=== PATIENT | male | born 1950 | race Caucasian/White ===

== ENCOUNTER 2024-09-27 08:12 | Observation (INO) | payer MEDICARE, SELFPAY ==
[2024-09-26 20:20] VITALS: BP 122/89
[2024-09-26 20:28] VITALS: BP 164/85
[2024-09-26 20:37] VITALS: BMI 31.1
[2024-09-26 20:45] LABS: % Basophils 0.3 % (0-2); % Immature Granulocytes 0.2 % (0-0.5); % Lymphocytes 28.4 % (20.5-51.1); % Monocytes 9.7 % (1.7-9.3); % Neutrophils 59.4 % (42.2-75.2); Absolute Eosinophils 0.1 10^3/uL (0-0.7); Absolute Lymphocytes 1.8 10^3/uL (1.2-3.4); Absolute Monocytes 0.6 10^3/uL (0.1-0.6); Absolute Neutrophils 3.8 10^3/uL (1.4-6.5); Hematocrit 37.5 % (39.0-52.0); Hemoglobin 13.3 g/dL (13.0-18.0); Mean Corp Hgb Conc. 35.5 g/dL (33.0-37.0); Mean Corpuscular Hgb 30.2 pg (27.0-31.0); Nucleated Red Blood Cells % 0 % (-); Platelet Count 217 10^3/uL (130-400); Red Blood Cell Count 4.41 10^6/uL (4.70-6.10); Red Cell Dist. Width 12.8 % (11.5-14.5); White Blood Cell Count 6.4 10^3/uL (4.8-10.8)
[2024-09-26 21:00] VITALS: BP 115/60
[2024-09-26 21:08] LABS: ALT (SGPT) 21 U/L (0-50); AST (SGOT) 25 U/L (17-59); Albumin 4.3 g/dl (3.5-5.0); Alkaline Phosphatase 60 U/L (38-126); Blood Urea Nitrogen 17 mg/dl (9-20); Calcium 9.8 mg/dl (8.4-10.2); Carbon Dioxide 29 mmol/L (22-30); Chloride 108 mmol/L (98-107); Estimated Creatinine Clearance 107 ml/min; Glucose 104 mg/dl (70-99); Potassium 4.1 mmol/L (3.5-5.1); Sodium 141 mmol/L (135-145); Total Bilirubin 0.3 mg/dl (0.2-1.3); eGFR > 60.00
[2024-09-26 21:20] LABS: Troponin I < 0.012 ng/ml
[2024-09-26 22:00] VITALS: BP 138/74
[2024-09-26 23:00] VITALS: BP 131/94
[2024-09-27] VITALS (15 sets, daily range): BP systolic 97–150; BP diastolic 55–90; PULSE 47–88; BMI 30.9; BMI 30.6
--- NOTE | 2024-09-27 00:16 | ED.GENMED ---
History of Present Illness
General
Chief Complaint: Dizziness
Source: patient
Exam Limitations: none
Time Seen by Provider: 09/27/24 00:13
Nursing documentation reviewed up to this point in time: agreed with
History of Present Illness
History of Present Illness:
Note:
CHIEF COMPLAINT(S)
Dizziness with episodes of vertigo.
HISTORY OF PRESENT ILLNESS
The patient is a 74-year-old male with a history of benign paroxysmal positional vertigo (BPPV), htn, hlp, ckd stage 2, depression who presents with worsening dizziness and vertigo. This is described as the third episode of vertigo in two months,
with the current episode being the most severe. The episodes began on a and progressed, with some improvement over the following days, but worsened again on the day of presentation. The patient reports losing balance, resulting in bouncing
against bolden at home, accompanied by intermittent nausea and vomiting. He mentioned a high blood pressure reading taken by a security advisor who is an Emergency Traveling Nurse (EMT). The patient expresses concern that this episode may involve
more than just vertigo. He has been using meclizine, which provided no relief today.
An MRI performed in June was clear. There is no current chest pain or numbness in limbs, although vertigo symptoms persist. The patient also reports a headache. The patients nausea and dizziness have improved slightly after resting in the emergency
department. He reports that he states to have a appointment today for physical therapy for his BPPV however he felt too ill.
EXTERNAL RECORDS REVIEWED
A previous brain MRI in June 2023 done at [facility] indicated no significant findings.
CHRONIC MEDICAL CONDITIONS SIGNIFICANTLY AFFECTING CARE
Chronic conditions affecting care: benign paroxysmal positional vertigo (BPPV).
PHYSICAL EXAM
- Nursing notes reviewed and vital signs reviewed.
General: Patient is well appearing and in no acute distress; non-toxic
Skin: Warm and dry, no rashes or lesions
Head: Normocephalic, atraumatic
Eyes: Sclera non-icteric. EOMs intact.
Cardiac: Regular rate and rhythm, no murmurs
Peripheral Vascular: No lower extremity swelling or edema
Pulm: Normal respiratory effort, no wheezes, rales, rhonchi
Abdomen: No abdominal tenderness to palpation
Neuro: CN II-XII intact, no focal neurologic deficits. Normal finger-nose, [id number]. Initially, his gait seems steady and normal however on reassessment, he experiences feeling unsteady and nursing staff reports that he had a near syncopal
episode.
Psychiatric: Appropriate mood and affect.
PLAN
CT scan, CBC, CMP, ECG, troponin
DIFFERENTIAL DIAGNOSIS
The Differential Diagnosis includes, in no particular order and is not limited to:
- Benign paroxysmal positional vertigo (BPPV)
- Stroke
- Labyrinthitis
- Vestibular neuritis
- Menieres disease
- Hypertension-induced dizziness
- Cardiogenic dizziness
- Anxiety-related dizziness
- Dehydration
- Medication side effect
REVIEW OF PRIOR RECORDS
No prior records in [facility] to review
MDM/DISPOSITION
The patient is a 74-year-old male with a history of benign paroxysmal positional vertigo (BPPV), htn, hlp, ckd stage 2, depression who presents with worsening dizziness and vertigo. In the past he was diagnosed with BPPV and was given meclizine.
Patient reports he took meclizine did not help. Patient reports that he was 'bouncing around the bolden 'of his apartment. My assessment, patient is well-appearing no acute distress. He has a nonfocal neurologic exam. He appears to have a normal
gait on my assessment after treatment with IV fluids and meclizine. He went to get a CAT scan of the head which was unremarkable his blood work is unremarkable as well. Did discuss discharge with patient considering he is feeling better. Patient
reports that his dizziness has returned. Discussed findings with my attending Dr. Hannah. Will trial Decadron. Will trial another dose of meclizine and more IV fluids. On reassessment, patient is sleeping comfortably but states that he feels
like he is floating. Patient feels like he feels well enough to see physical therapy this week for an appointment but is concerned that if he is discharged, his symptoms will return and get worse. Upon discharge, I was alerted by nursing staff
that all symptoms returned again and he demonstrated unsteady gait and had a near syncopal episode. Will refer for admission for intractable dizziness. Case discussed with ED attending.
Phy Exam
Physical Exam
Physical Exam:
see hpi
Course
Orders/Labs/Results
Orders:
Orders
09/26/24 20:24
Electrocardiogram (*1) Urgent
Reason for Study: Vertigo / Dizzy
EKG- Treatment ONCE
09/26/24 20:35
Complete Blood Count/With Diff Urgent
Comprehensive Metabolic Panel Urgent
Troponin I Urgent
09/27/24 00:16
Orthostatic VS- Treatment ONCE
09/27/24 00:24
Urinalysis Reflex To Culture Urgent
Date Specimen was Collected: 09/27/24
Time Specimen was Collected: 00:20
Urine Microscopic Reflex Cult Urgent
09/27/24 00:26
0.9% Sodium Chloride 500 ml [Nss] 500 ml IV BOLUS
Meclizine [Antivert] 25 mg PO NOW STA
Ondansetron Injectable [Zofran] 4 mg IV NOW STA
09/27/24 00:27
CT Head W/o Iv Contrast Urgent
Comment:
Reason For Exam: dizziness
09/27/24 03:07
Dexamethasone Sod Phosphate [Decadron] 10 mg IV NOW STA
09/27/24 03:08
0.9% Sodium Chloride 500 ml [Nss] 500 ml IV BOLUS
09/27/24 04:25
Meclizine [Antivert] 25 mg PO NOW STA
Abnormal Lab Results
09/26/24 09/27/24
20:35 00:24
RBC 4.41 L 10^6/uL
(4.70-6.10)
Hct 37.5 L %
(39.0-52.0)
Monocytes % 9.7 H %
(1.7-9.3)
Chloride 108 H mmol/L
(98-107)
Glucose 104 H mg/dl
(70-99)
Urine Albumin (Reflex) 1+ A
(Neg - Trace)
09/26/24 20:35
09/26/24 20:35
Vital Signs
Initial and Last Documented VS:
Initial Vital Signs
Temp Pulse Resp BP Pulse Ox
98.1 F 66 16 122/89 98
09/26/24 20:20 09/26/24 20:20 09/26/24 20:20 09/26/24 20:20 09/26/24 20:20
Last Documented Vital Signs
Temp Pulse Resp BP Pulse Ox
98.1 F 50 16 105/65 89
09/26/24 20:20 09/27/24 03:45 09/27/24 03:45 09/27/24 02:58 09/27/24 01:45
*Pulse Oximetry
SaO2: 97
Oxygen Mode of Delivery: Room air
Patient hypoxic: no
*Critical Care Note
Total Time (30-74mins, 75-104mins- exclusive of procedures): Not Applicable
ED Attending Note
-
Portions of this chart may have been created with voice recognition software.� Occasional wrong word or��sound alike� substitutions may have occurred due to the inherent limitations of voice recognition software.
Discharge Plan
Departure
Patient Disposition: Admit
Date of Disposition: 09/27/24
Time of Disposition: 07:16
Admit to: Med/Surg
Presentation/result/management discussed w/ accepting MD/DO: Hospitalist
Patient with high blood pressure during this ER visit?: No
Condition: Good
Discharge Problem:
Dizziness
Instructions: Vertigo (a Type of Dizziness) (DC)
Referrals:
Dewayne Sepnce MD [Family Provider]
Judy Mireles MD [Active, Otology]
Activity Restrictions/Additional Instructions:
I recommend evaluation by ENT doctor.
Please follow-up with your physical therapist this week with your scheduled appointment.
Please see your primary care provider in 1 week to ensure the resolution of your symptoms and for reevaluation and assessment.
PLEASE RETURN TO EMERGENCY DEPARTMENT SHOULD YOU DEVELOP CHEST PAIN, SHORTNESS OF BREATH, NAUSEA OR VOMITING, INABILITY AMBULATE, TROUBLE SWALLOWING, DIFFICULTY SPEAKING, DOUBLE VISION, BLURRY VISION, LOSS OF VISION, NECK PAIN, PERSISTENT HEADACHES,
OR ANY OTHER SIGNS OR SYMPTOMS WORRISOME TO YOU.
Interventions
Interventions:
*Risk Screen - Suicide Last Done: 09/26/24 20:37
*General Assessment Last Done: 09/26/24 20:37
*Neglect/Abuse Screening Last Done: 09/26/24 20:37
*ED- Fall Risk Assessment Last Done: 09/26/24 20:37
*ED COVID-19 Vaccine History Last Done: 09/26/24 20:37
ED- Neurological Assessment Last Done: 09/26/24 20:37
ED- Cardiac Assessment Last Done: 09/26/24 20:37
ED Swallowing Screen Last Done: 09/26/24 20:40
Discharge Date and Time
Print Language: GUAMANIAN
[2024-09-27 00:34] LABS: Urine Albumin 1+ (Neg - Trace); Urine Bilirubin Negative (Negative); Urine Character Clear (Clear); Urine Color Yellow; Urine Glucose Negative (Negative); Urine Ketone Negative (Negative); Urine Leukocyte Negative (Negative); Urine Nitrite Negative (Negative); Urine Occult Blood Negative (Negative); Urine Specific Gravity 1.015 (<1.030); Urine Urobilinogen Negative (Neg - 1+); Urine pH 6.5 (5.0-9.0)
[2024-09-27] MEDS: ANTIVERT 25 MG PO ×2 (00:48→04:41)
[2024-09-27] MEDS: ZOFRAN 4 MG IV (00:49)
[2024-09-27] MEDS: NSS 500 IV ×2 (00:53→03:37)
[2024-09-27 01:08] LABS: Urine Squamous Cell 0-2 /LPF (Few)
[2024-09-27 01:09] LABS: Urine Red Blood Cell None Seen /HPF (0-2); Urine White Cell 0-2 /HPF (0-5)
[2024-09-27] MEDS: DECADRON 10 MG IV (03:37)
--- NOTE | 2024-09-27 07:40 | HPS.HSE ---
Family Physician
-
Family Physician: Dewayne Spence
Chief Complaint
-
dizziness
History of Present Illness
HPI: 74-year-old male with PMH benign paroxysmal positional vertigo, HTN, HLD, depression; p/w worsening dizziness and vertigo.
This episodes started 3-4 days [employer]INTER and progressed. The patient reports losing balance, resulting in bouncing against bolden at home, accompanied by intermittent nausea and vomiting.
He is concern that this may involve more than just vertigo. He has been using meclizine, which had minimal relief.
He had a MRI performed in June which was clear. He denies to other symptoms, no fever/chills, CP, SOB etc.
Medical History
Past Medical History
Past Medical History: Reports Other
Additional Past Medical History:
benign paroxysmal positional vertigo,
HTN,
HLD,
depression
Past Surgical History: Reports Other
Additional Past Surgical History:
L knee replacement
L shoulder replacement
4 back operations
Social History
Tobacco: Non-smoker
Alcohol: Occasional
Living: Alone
Family History
Family History: Not pertinent
Allergies / Home Medications
Allergies reflects when Allergies were last updated in [facility].
Home Medications with original date entered in [facility]
Allergy/Medication List:
Allergies
Allergy/AdvReac Type Severity Reaction Status Date / Time
No Known Allergies Allergy Verified 09/26/24 20:31
Home Medications
aspirin 81 mg tablet,delayed release 81 mg PO DAILY 09/27/24
atorvastatin 20 mg tablet (Lipitor) 20 mg PO DAILY 09/27/24
bupropion HCl 300 mg 24 hr tablet, extended release (Wellbutrin XL) 300 mg PO DAILY 09/27/24
diltiazem HCl 240 mg capsule,extended release 24 hr (Cartia XT) 240 mg PO DAILY 09/27/24
dutasteride 0.5 mg capsule 0.5 mg PO DAILY 09/27/24
escitalopram oxalate 10 mg tablet (Lexapro) 10 mg PO DAILY 09/27/24
omeprazole 20 mg capsule,delayed release 20 mg PO DAILY 09/27/24
tamsulosin 0.4 mg capsule (Flomax) 0.4 mg PO QPM 09/27/24
Review of Systems
-
Neurological: Reports See HPI and Dizzy
Physical Exam
Vital Signs
Vital Signs
Temp Pulse Resp BP Pulse Ox
36.7 C 56 15 123/68 92
09/26/24 20:20 09/27/24 07:15 09/27/24 07:15 09/27/24 07:00 09/27/24 06:45
Physical Exam
General: Well Developed, Well Nourished, No Apparent Distress, Comfortable and Conversant
HEENT: NormoCephalic, Moist mucous membranes and Atraumatic
Respiratory: Clear and Non Labored Respirations; No Accessory Resp Muscle Use
Cardiac: S1/S2 and Regular Rhythm; No Murmur or Rub
GI: Soft, Non Tender, Non Distended and Normal Bowel Sounds; No Organomegaly
Rectal: Deferred by Provider
Musculoskeletal: No Clubbing, No Cyanosis and No Edema
Skin: No Rash
Neuro: Awake and Alert
Psych: Calm and Intact Judgment/Insight
Laboratory Results
-
09/26/24 20:35
09/26/24 20:35
Laboratory Results
Total Bilirubin 0.3 mg/dl (0.2-1.3) 09/26/24 20:35
AST 25 U/L (17-59) 09/26/24 20:35
ALT 21 U/L (0-50) 09/26/24 20:35
Alkaline Phosphatase 60 U/L (38-126) 09/26/24 20:35
Troponin I < 0.012 ng/ml 09/26/24 20:35
Data Reviewed
-
Lab Data: Labs Reviewed by me
Impression/Plan
-
HPI: 74-year-old male with PMH benign paroxysmal positional vertigo, HTN, HLD, depression; p/w worsening dizziness and vertigo.
This episodes started 3-4 days [employer] and progressed. The patient reports losing balance, resulting in bouncing against bolden at home, accompanied by intermittent nausea and vomiting.
He is concern that this may involve more than just vertigo. He has been using meclizine, which had minimal relief.
He had a MRI performed in June which was clear. He denies to other symptoms, no fever/chills, CP, SOB etc.
A/P:
# Vertigo due to recurrent BPPV versus others
Follow CT head report
Check MRI brain
Zofran PRN, meclizine PRN
PT eval for vestibular therapy
consider neuro CS
Other medical conditions:
# HTN, cont [employer]INTER cardizem
# HLD,
# depression, mood stable
DVT ppx: Lovenox SQ
FC
[2024-09-27] MEDS: LIPITOR 20 MG PO (11:26)
[2024-09-27] MEDS: LEXAPRO 10 MG PO (11:26)
[2024-09-27] MEDS: PROSCAR 5 MG PO (11:26)
[2024-09-27] MEDS: WELLBUTRIN XL (24 hour extended release) 300 MG PO (11:27)
[2024-09-27] MEDS: CARDIZEM CD 240 MG PO (11:27)
[2024-09-27] MEDS: ASPIR LOW (ENTERIC COATED) 81 MG PO (11:28)
[2024-09-27] MEDS: PROTONIX 40 MG PO (11:28)
--- NOTE | 2024-09-27 16:31 | PTCARENOTE ---
Received pt from ED into room 406-1. Pt ambulatory to bed with standby assistance. Pt slightly unsteady. Bed alarm in place. Pt can be impulsive at times. Verbalizes understanding for calling for help. PT consult. Pt reports no pain, VSS.
[2024-09-27] MEDS: LOVENOX 40 MG SC (17:15)
[2024-09-27] MEDS: FLOMAX 0.4 MG PO (17:15)
[2024-09-27] MEDS: TYLENOL 650 MG PO (21:18)
[2024-09-28 07:00] VITALS: BP 143/77
[2024-09-28 07:27] LABS: Hemoglobin 13.5 g/dL (13.0-18.0); Mean Corp Hgb Conc. 35.5 g/dL (33.0-37.0); Mean Corpuscular Hgb 30.7 pg (27.0-31.0); Mean Corpuscular Volume 86.4 fL (80.0-94.0); Mean Platelet Volume 9.3 fL (7.4-10.4); Platelet Count 259 10^3/uL (130-400); Red Cell Dist. Width 12.8 % (11.5-14.5); White Blood Cell Count 13.8 10^3/uL (4.8-10.8)
[2024-09-28 08:07] LABS: Blood Urea Nitrogen 18 mg/dl (9-20); Calcium 9.7 mg/dl (8.4-10.2); Carbon Dioxide 24 mmol/L (22-30); Chloride 106 mmol/L (98-107); Estimated Creatinine Clearance 106 ml/min; Glucose 105 mg/dl (70-99); Magnesium 1.9 mg/dl (1.6-2.3); Potassium 4.2 mmol/L (3.5-5.1); Sodium 142 mmol/L (135-145); eGFR > 60.00
[2024-09-28] MEDS: ASPIR LOW (ENTERIC COATED) 81 MG PO (08:22)
[2024-09-28] MEDS: CARDIZEM CD 240 MG PO (08:22)
[2024-09-28] MEDS: LIPITOR 20 MG PO (08:22)
[2024-09-28] MEDS: PROSCAR 5 MG PO (08:23)
[2024-09-28] MEDS: LEXAPRO 10 MG PO (08:23)
[2024-09-28] MEDS: PROTONIX 40 MG PO (08:23)
[2024-09-28] MEDS: WELLBUTRIN XL (24 hour extended release) 300 MG PO (08:23)
[2024-09-28 08:26] LABS: Hepatitis C Antibody Negative (Negative)
--- NOTE | 2024-09-28 10:47 | W.PN.HOSP.TC ---
Addendum entered and electronically signed by Yasmin Gannon MD 09/28/24 13:43:
total DC time 35 min
Original Note:
Today's Communication/Plan
-
see A/P
Assessment / Plan
Assessment / Plan
HPI: 74-year-old male with PMH benign paroxysmal positional vertigo, HTN, HLD, depression; p/w worsening dizziness and vertigo.
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 The patient reports losing balance, resulting in bouncing against bolden at home, accompanied by intermittent nausea and vomiting.
He is concern that this may involve more than just vertigo. He has been using meclizine, which had minimal relief.
He had a MRI performed in June which was clear. He denies to other symptoms, no fever/chills, CP, SOB etc.
A/P:
# Vertigo due to recurrent BPPV versus others
CT head and MRI brain both unrevealing
Zofran PRN, meclizine PRN
PT eval for vestibular therapy
Symptom has improved , no need for neuro eval
# Leucocytosis likely reactive
WBC 13.8 today, check repeat CBC in 1 week with result to PCP
Other medical conditions:
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
# HLD,
# depression, mood stable
DVT ppx: Lovenox SQ
FC
Anticipated Discharge: Today
Subjective/Interval History
-
Date of Service: September 28, 2024
Objective Data
-
Labs:
Laboratory Results
09/28/24
06:26
WBC 13.8 H
Hgb 13.5
Hct 38.0 L
Plt Count 259
Sodium 142
Potassium 4.2
Chloride 106
Carbon Dioxide 24
BUN 18
Creatinine 0.8
Glucose 105 H
Calcium 9.7
Vital Signs:
Vital Signs
Temp Pulse Resp BP Pulse Ox
36.7 C 90 18 143/77 100
09/28/24 07:00 09/28/24 08:22 09/28/24 07:00 09/28/24 08:22 09/28/24 09:26
I&O
09/27/24 09/28/24 09/29/24
06:59 06:59 06:59
Intake Total 1100 / 1100
Output Total 400 / 400
Balance -400 / -400 1100 / 1100
Review of Systems
-
History Source: Patient
All other systems: Reviewed and negative
Physical Exam
-
General: Well Developed, Well Nourished, No Apparent Distress, Comfortable and Conversant; Negative Respiratory Distress
HEENT: Normocephalic, Atraumatic, Nose Appears Normal and Ears Appear Normal; Negative Oxygen
Respiratory: Clear to Auscultation and Non Labored Respirations; Negative Accessory Resp Muscle Use
Cardiac: Regular Rhythm and S1/S2
GI: Soft, Nontender, Nondistended and Normal Bowel Sounds
Skin: Warm and Dry
Neuro: Awake, Alert, Oriented and AO x 3
Psych: Calm and Intact Judgement/Insight
Data Reviewed
-
CT Scan: Report Reviewed by me and Discussed with Patient
MRI: Report Reviewed by me and Discussed with Patient
Labs: Labs Reviewed by me
[2024-09-28 11:06] VITALS: BP 144/64
[2024-09-28 11:47] LABS: C-Reactive Protein < 5.00 mg/L (0.0-10.00)
--- NOTE | 2024-09-28 12:59 | CM ---
Met with patient to obtain information for assessment. Patient stated that he lives alone at [facility]. He is independent with all of his ADLs, personal care, dressing and bathing. 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 Patient
stated that he has no DME. He has never had VN or been to a SNF.
Patient has a prescription plan and uses, [facility] at [facility].
Patient's PCP is, Dewayne Spence.
Per PT rec patient should continue with outpatient rehab. Patient's daughter will pick patient up.
Update called to Roberta at [facility].
Plan: Case management will continue to follow and assist with discharge planning. Home.
--- NOTE | 2024-09-28 13:40 | W.DCSUMMARY ---
Discharge Summary
Discharge Data
Date of Admission: 09/27/24
Date of Discharge: 09/28/24
-
Pending Results: No
Hospital Course
Principal Diagnosis:
Vertigo due to recurrent BPPV
Suspect reactive leukocytosis
Chronic Diagnoses:�
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
# HLD,
# depression, mood stable
Consultations:�
None
Procedures:�
None
Clinical course:�
This is a 74-year-old male with past medical history as stated above who presented with worsening dizziness/vertigo.
Problem 1:
Vertigo due to recurrent BPPV.
His CT head and MRI brain were both unrevealing.
His symptom improved hence was cleared for discharge home.
He can continue with meclizine as needed.
He can follow-up with PT outpatient for continued vestibular therapy.
As for the rest of his medical problems, they were stable during his hospital stay.
Discharge Plan
-
Patient Disposition: Home (Routine Discharge)
Discharge Diagnosis/Procedures: Vertigo due to recurrent BPPV;
[place] reactive leukocytosis
Condition: Good
Diet: As tolerated, Low Fat, Low Cholesterol and Low Sodium
Activity: As tolerated
Driving Restrictions: As prior to admission
Blood Work: CBC in 1 week, result to your PCP
Other Services: PT
Activity Restrictions/Additional Instructions:
Continue with [facility] outpatient for your BPPV
Referrals:
Dewayne Spence MD [Family Provider] - in less than 1 week
Prescriptions:
Continued
diltiazem HCl [Cartia XT] 240 mg capsule,extended release 24hr
240 mg PO DAILY
omeprazole 20 mg capsule,delayed release(DR/EC)
20 mg PO DAILY
atorvastatin [Lipitor] 20 mg Tablet
20 mg PO DAILY
aspirin 81 mg Tablet,Delayed Release (Dr/Ec)
81 mg PO DAILY
tamsulosin [Flomax] 0.4 mg Capsule
0.4 mg PO QPM
escitalopram oxalate [Lexapro] 10 mg Tablet
10 mg PO DAILY
Patient Comments:
[facility] phyisican group only has once a day
dutasteride 0.5 mg Capsule
0.5 mg PO DAILY
bupropion HCl [Wellbutrin XL] 300 mg Tablet Extended Release 24 Hr
300 mg PO DAILY
Discharge Orders:
Discharge Patient (As Directed); Ordered 09/28/24
Ordered By: Yasmin Gannon
Discharge Date and Time
Discharge Date/Time: 09/28/24 13:17
Print Language: WELSH
== END 2024-09-28 13:17 ==
LOC: 4 EAST ACU 08:12
PROVIDERS: Emergency Medicine; Physician Assistant; ADMITTING PHYSICIAN Internal Medicine; EMERGENCY PHYSICIAN Emergency Medicine; FAMILY PHYSICIAN Internal Medicine
DX: H81.10 Benign paroxysmal vertigo, unspecified ear (principal); R42 Dizziness and giddiness; R11.2 Nausea with vomiting, unspecified; I12.9 Hypertensive chronic kidney disease with stage 1 through stage 4 chronic kidney disease, or unspecified chronic kidney disease; Z79.899 Other long term (current) drug therapy; E78.5 Hyperlipidemia, unspecified; F32.A Depression, unspecified; D72.829 Elevated white blood cell count, unspecified
CPT/HCPCS: 70450; 70551; 80048; 80053; 81003; 81015; 83735; 84484; 85025; 85027; 86140; 86803; 87070; 93005; 96374; 96375; 97112; 97163; 99285; G0378

== ENCOUNTER 2024-10-01 14:53 | Emergency (ER) | payer MEDICARE, OTHER, SELFPAY ==
[2024-10-01 14:57] VITALS: BP 141/77
--- NOTE | 2024-10-01 17:04 | ED.GENMED ---
History of Present Illness
General
Chief Complaint: Dizziness
Source: patient
Exam Limitations: none
Time Seen by Provider: 10/01/24 16:43
Nursing documentation reviewed up to this point in time: agreed with
History of Present Illness
History of Present Illness:
74-year-old female with past medical history of BPV, hypertension depression presents back to the ER for continued vertigo. Patient was just admitted September 27 and discharged September 28 ,3 days ago. He did have a CAT scan and MRI which were negative.
He saw his pcp yesterday and is also taking Flonase and Zofran or meclizine. He reports he has had intermittent vertigo over the past month and a half but now is getting worse. He lives in [facility] and started with dizziness
again today which is what prompted him to call EMS.
He is scheduled for physical therapy on Thursday. Reports he has had intermittent chest pains over the past several days without associated shortness of breath. No history of CAD.
He reports when he gets the chest pain he takes his Klonopin which she normally takes for anxiety as pain goes away.
Review of Systems
Review of Systems
Allergies reviewed?: Yes
All Other Systems: ROS reviewed and negative except as documented in HPI and ROS
Phy Exam
General Physical Exam
General Presentation: no apparent distress
General age: appears stated age
General Skin: warm and dry
General Habitus: normal
General Mental: alert
General Hydration: appears well hydrated
ENT Exam
ENT Exam: EOMI
Eye Exam
Eye Exam: PERRL, EOMI and other (No nystagmus b/l )
Pupil Exam: Bilateral: irregular and round
Conjunctival Changes: bilateral: none
Cardiovascular Exam
Cardiovascular Exam: regular rate/rhythm and no murmur
Neurological Exam
Neurological Exam: alert and oriented x3
Musculoskeletal Exam
Musculoskeletal Exam: full ROM
Course
Orders/Labs/Results
Orders:
Orders
10/01/24 14:55
EKG [Electrocardiogram (*1)] Stat
Reason for Study: Vertigo / Dizzy
EKG- Treatment ONCE
10/01/24 17:40
IV Insert/Care/Rem.- Treatment PRN
diazePAM [Valium Injection] 2 mg IV NOW STA
10/01/24 17:41
Cardiac Monitoring- Treatment ONCE
CR Chest - 2 Views Urgent
Comment:
Reason For Exam: cp
10/01/24 17:44
Complete Blood Count/With Diff Urgent
Comprehensive Metabolic Panel Urgent
Troponin I Urgent
Abnormal Lab Results
10/01/24
17:44
Chloride 109 H mmol/L
(98-107)
10/01/24 17:44
10/01/24 17:44
Vital Signs
Initial and Last Documented VS:
Initial Vital Signs
Temp Pulse Resp BP Pulse Ox
98.3 F 79 16 141/77 98
10/01/24 14:57 10/01/24 14:57 10/01/24 14:57 10/01/24 14:57 10/01/24 14:57
Last Documented Vital Signs
Temp Pulse Resp BP Pulse Ox
98.3 F 79 16 141/77 98
10/01/24 14:57 10/01/24 14:57 10/01/24 14:57 10/01/24 14:57 10/01/24 17:05
MDM/Problems Addressed
MDM/Problems Addressed:
Pt with chronic vertigo presents to the ER for evaluation of vertigo. Patient no acute distress was given a dose of IV Valium feeling better very well-appearing nontoxic. He did not not initially mention but later on reassessment mention that he
has had intermittent chest discomfort off and on for the past several weeks. This is not new however blood work was done including negative her troponin. No acute findings on EKG normal chest x-ray Pt has physical scheduled for this Thursday.
Patient is stable for discharge home ambulatory with a steady gait prior to discharge.
*Pulse Oximetry
SaO2: 98
Oxygen Mode of Delivery: Room air
Patient hypoxic: no (98 %RA)
*Critical Care Note
Total Time (30-74mins, 75-104mins- exclusive of procedures): Not Applicable
ED Attending Note
-
Portions of this chart may have been created with voice recognition software.� Occasional wrong word or��sound alike� substitutions may have occurred due to the inherent limitations of voice recognition software.
Discharge Plan
Departure
Patient Disposition: Home (Routine Discharge)
Date of Disposition: 10/01/24
Time of Disposition: 19:27
Patient with high blood pressure during this ER visit?: Yes
Condition: Fair
Covid-19: Not Applicable
Discharge Problem:
Vertigo, Chest pain
Instructions: Vertigo (a Type of Dizziness) (DC), Chest Pain PCP Follow Up, BLOOD PRESSURE
Prescriptions:
No Action
diltiazem HCl [Cartia XT] 240 mg capsule,extended release 24hr
240 mg PO DAILY
omeprazole 20 mg capsule,delayed release(DR/EC)
20 mg PO DAILY
atorvastatin [Lipitor] 20 mg Tablet
20 mg PO DAILY
aspirin 81 mg Tablet,Delayed Release (Dr/Ec)
81 mg PO DAILY
tamsulosin [Flomax] 0.4 mg Capsule
0.4 mg PO QPM
escitalopram oxalate [Lexapro] 10 mg Tablet
10 mg PO DAILY
Patient Comments:
[facility] only has once a day
dutasteride 0.5 mg Capsule
0.5 mg PO DAILY
bupropion HCl [Wellbutrin XL] 300 mg Tablet Extended Release 24 Hr
300 mg PO DAILY
Referrals:
UNKNOWN - PT NOT,INTERVIEWE [Unknown Provider]
Activity Restrictions/Additional Instructions:
Continue to take your meclizine for dizziness and Zofran for nausea as needed. Follow-up with physical therapy as scheduled on Thursday. Continue to follow-up with your family doctor for reevaluation of your symptoms and return if any worsening of
symptoms.
Interventions
Interventions:
*Risk Screen - Suicide Last Done: 10/01/24 14:57
*Neglect/Abuse Screening Last Done: 10/01/24 14:57
Discharge Date and Time
Print Language: [email or web address]
[2024-10-01 17:54] LABS: % Basophils 0.4 % (0-2); % Eosinophils 2.1 % (0-6); % Immature Granulocytes 0.3 % (0-0.5); % Lymphocytes 26.7 % (20.5-51.1); % Monocytes 8.4 % (1.7-9.3); % Neutrophils 62.1 % (42.2-75.2); Absolute Eosinophils 0.2 10^3/uL (0-0.7); Absolute Lymphocytes 1.9 10^3/uL (1.2-3.4); Absolute Monocytes 0.6 10^3/uL (0.1-0.6); Absolute Neutrophils 4.5 10^3/uL (1.4-6.5); Hematocrit 40.4 % (39.0-52.0); Hemoglobin 14.4 g/dL (13.0-18.0); Mean Corp Hgb Conc. 35.6 g/dL (33.0-37.0); Mean Corpuscular Hgb 30.6 pg (27.0-31.0); Mean Platelet Volume 9.2 fL (7.4-10.4); Nucleated Red Blood Cells % 0 % (-); Platelet Count 218 10^3/uL (130-400); White Blood Cell Count 7.3 10^3/uL (4.8-10.8)
[2024-10-01] MEDS: VALIUM INJECTION 2 MG IV (17:57)
[2024-10-01 18:00] VITALS: BP 138/89
[2024-10-01 18:10] LABS: ALT (SGPT) 24 U/L (0-50); AST (SGOT) 22 U/L (17-59); Albumin 4.4 g/dl (3.5-5.0); Alkaline Phosphatase 62 U/L (38-126); Blood Urea Nitrogen 20 mg/dl (9-20); Calcium 9.5 mg/dl (8.4-10.2); Carbon Dioxide 24 mmol/L (22-30); Chloride 109 mmol/L (98-107); Glucose 91 mg/dl (70-99); Potassium 4.4 mmol/L (3.5-5.1); Sodium 139 mmol/L (135-145); Total Bilirubin 0.4 mg/dl (0.2-1.3); eGFR > 60.00
[2024-10-01 18:20] LABS: Troponin I < 0.012 ng/ml
== END 2024-10-01 20:20 | disposition home or self-care (01) ==
LOC: EMR 14:53
PROVIDERS: Nurse Practitioner; EMERGENCY PHYSICIAN Emergency Medicine; FAMILY PHYSICIAN Internal Medicine
DX: R42 Dizziness and giddiness (principal); R07.89 Other chest pain; F32.A Depression, unspecified; F41.9 Anxiety disorder, unspecified; K57.92 Diverticulitis of intestine, part unspecified, without perforation or abscess without bleeding; I12.9 Hypertensive chronic kidney disease with stage 1 through stage 4 chronic kidney disease, or unspecified chronic kidney disease; N18.2 Chronic kidney disease, stage 2 (mild); M19.90 Unspecified osteoarthritis, unspecified site; Z79.82 Long term (current) use of aspirin; Z96.652 Presence of left artificial knee joint; Z96.612 Presence of left artificial shoulder joint
CPT/HCPCS: 99284; 96374; 71046; 80053; 84484; 85025; 93005

== ENCOUNTER 2024-10-19 20:33 | Inpatient (IN) | payer MEDICARE, OTHER, SELFPAY ==
[2024-10-19 17:19] VITALS: BP 139/98
[2024-10-19 17:30] VITALS: BMI 31.6
[2024-10-19 17:33] LABS: Hematocrit 42.1 % (39.0-52.0); Hemoglobin 14.9 g/dL (13.0-18.0); Mean Corp Hgb Conc. 35.4 g/dL (33.0-37.0); Mean Corpuscular Volume 84.5 fL (80.0-94.0); Nucleated Red Blood Cells % 0 % (-); Platelet Count 252 10^3/uL (130-400); Red Cell Dist. Width 13.0 % (11.5-14.5)
[2024-10-19] MEDS: DILAUDID 1 MG IV (17:36)
[2024-10-19] MEDS: NSS 1000 IV (17:42)
[2024-10-19] MEDS: BENADRYL 25 MG IV (17:43)
[2024-10-19 17:45] VITALS: BP 142/84
[2024-10-19 17:51] LABS: ALT (SGPT) 26 U/L (0-50); AST (SGOT) 30 U/L (17-59); Albumin 5.1 g/dl (3.5-5.0); Alkaline Phosphatase 85 U/L (38-126); Blood Urea Nitrogen 12 mg/dl (9-20); Calcium 10.2 mg/dl (8.4-10.2); Carbon Dioxide 25 mmol/L (22-30); Chloride 104 mmol/L (98-107); Estimated Creatinine Clearance 123 ml/min; Glucose 136 mg/dl (70-99); Potassium 4.3 mmol/L (3.5-5.1); Sodium 137 mmol/L (135-145); Total Protein 8.1 g/dl (6.3-8.2); eGFR > 60.00
[2024-10-19] MEDS: REGLAN 10 MG IV (17:51)
[2024-10-19 17:52] LABS: Lipase 60 U/L (23-300)
[2024-10-19 18:15] VITALS: BP 147/78
--- NOTE | 2024-10-19 18:56 | ED.GENMED ---
History of Present Illness
General
Chief Complaint: Abdominal Symptoms
Source: patient and family (Daughter states that the patient had a small bowel obstruction at [place] about 1 year ago and the obstruction resolved on its own)
Time Seen by Provider: 10/19/24 17:30
History of Present Illness
History of Present Illness:
Note:
CHIEF COMPLAINT(S)
Severe abdominal pain with nausea.
HISTORY OF PRESENT ILLNESS
The patient is a 74-year-old male presenting with severe abdominal pain that began this morning. The pain is described as burning and is localized to his abdomen, radiating to his back. The patient reports a history of lower intestinal blockage and
diverticulitis on two occasions. He initially attempted self-management by drinking water but found no relief. He mentions that he was nauseous yesterday but did not experience the same level of pain as today. Upon examination, significant
tenderness was noted upon palpation of the abdomen with signs of rebound tenderness. The patient was brought to the hospital by ambulance and received pain medication prior to arrival.
PHYSICAL EXAM
General: Appears to be in severe pain distress.
Skin: Warm, dry.
Head: Normocephalic, atraumatic.
Neck: Supple, trachea midline.
Eye, Ears, Nose, Mouth, and Throat: Oral mucosa moist.
Cardiovascular: Heart regular without murmur, extremities well-perfused.
Respiratory: Lungs clear to auscultation, respirations are non-labored.
Gastrointestinal: Abdomen is distended, diffusely tender with rebound tenderness and no bowel sounds. No pulsatile masses identified.
Back: Normal range of motion, Normal alignment.
Musculoskeletal: Normal ROM, normal strength.
Neurological: Alert and oriented to person, place, time, and situation, No focal neurological deficit observed.
Psychiatric: Cooperative, appropriate mood & affect.
PLAN
1. Administer pain management with intravenous medication.
2. Conduct a CT scan of the abdomen to assess for potential blockage and further evaluate the abdominal pain.
3. Evaluate the need for contrast depending on initial imaging findings.
4. Administer anti-nausea medication (Ondansetron).
DIFFERENTIAL DIAGNOSIS
The Differential Diagnosis includes, in no particular order and is not limited to:
1. Intestinal Obstruction
2. Diverticulitis
3. Pancreatitis
4. Acute Cholecystitis
5. Peptic Ulcer Disease
6. Mesenteric Ischemia
7. Abdominal Aortic Aneurysm
8. Renal Colic
9. Gastroenteritis
10. Perforated Viscus
Disposition:
SUMMARY OF ENCOUNTER
The patient is a 74-year-old male who presented to the emergency department with severe intractable abdominal pain and vomiting. Initially, he denied prior surgeries but later recalled a past hernia repair. Further evaluation indicated a likely
high-grade bowel obstruction, a condition recognized due to the presence of intractable pain and vomiting. Upon re-evaluation, the patient reported improvement after administration of pain medication and antiemetics. His medical history includes
chronic hypertension, hyperlipidemia, and depression. The emergency department workup noted leukocytosis with a white blood count of 12.9 and a left shift with neutrophilia at 88%. Chemistry panel results were normal. An EKG showed a normal sinus
rhythm with a first-degree AV block but no ischemic changes. An NG tube placement resulted in significant symptom improvement.
DISPOSITION
Admit
ASSESSMENT
Likely high-grade bowel obstruction with improvement post-NG tube placement and medical management.
EMERGENCY TREATMENTS ADMINISTERED
Pain medication and antiemetics were administered. An NG tube was placed, leading to symptom improvement.
MANAGEMENT OF THE PATIENTS CARE WAS DISCUSSED WITH
The case was discussed with the general surgery team, who reviewed the CT scan and agreed with the management plan. It was also discussed with the hospitalist for admission.
PLAN
Admit the patient for IV fluid management. Continue IV fluids with D5 normal saline at a specified rate.
INDEPENDENT REVIEW OF LABS AND INTERPRETATION OF TESTS
My independent review of the CBC indicates leukocytosis with a white blood count of 12.9 and a left shift with neutrophilia of 88%.
My independent interpretation of EKG shows normal sinus rhythm with a first-degree AV block and no ischemic changes.
MEDICATION RECONCILIATION
Pain medication and antiemetics were administered in the emergency department. The specifics of these medications were not provided.
MEDICAL DECISION MAKING
-Complexity of Data Reviewed: Chronic conditions affecting care: chronic hypertension, hyperlipidemia, depression. Differential Diagnosis includes: Intestinal Obstruction, Diverticulitis, Pancreatitis, Acute Cholecystitis, Peptic Ulcer Disease,
Mesenteric Ischemia, Abdominal Aortic Aneurysm, Renal Colic, Gastroenteritis, and Perforated Viscus.
-Data:
Category 1
Old records were reviewed including a discharge summary from September 2024, where the patient was previously admitted due to vertigo.
Category 2
My independent interpretation of EKG shows normal sinus rhythm with a first-degree AV block and no ischemic changes.
Category 3
Discussion of management with general surgery regarding the review of the CT scan and agreement on management. Discussion with hospitalist for admission and further care.
-Risk:
Consideration of Admission/Observation: Escalation of care including admission was considered given the complexity and risk of the patients presenting complaint, exam findings, and underlying comorbidities.
DIAGNOSIS
Likely High-Grade Bowel Obstruction - ICD-10 Code: K56.60
Phy Exam
Physical Exam
Physical Exam:
.
Course
Orders/Labs/Results
Orders:
Orders
10/19/24 Breakfast
NPO
Allow oral meds: Yes
Allow clear liquids: Sips of Clears
10/19/24 17:18
Electrocardiogram (*1) Urgent
Reason for Study: Abdominal Pain
10/19/24 17:19
EKG- Treatment ONCE
10/19/24 17:27
Complete Blood Count/With Diff Urgent
Comprehensive Metabolic Panel Urgent
Lipase Urgent
10/19/24 17:35
HYDROmorphone [Dilaudid] 1 mg .ROUTE .STK-MED ONE
HYDROmorphone [Dilaudid] 1 mg IV NOW STA
10/19/24 17:38
CT Abd/pelvis W Iv Cont Urgent
Comment: does not need to wait or labs
Reason For Exam: severe abd pain to the back.
10/19/24 17:39
Diphenhydramine [Benadryl] 25 mg IV NOW STA
Metoclopramide [Reglan] 10 mg IV NOW STA
10/19/24 17:40
0.9% Sodium Chloride 1000 ml [Nss] 1,000 ml IV BOLUS
10/19/24 18:20
NG Tube [GI tube insertion- Treatment] ONCE
10/19/24 19:00
Dextrose 5%/0.9%Sodchl 1000 ml [D5/0.9% Sodium Chloride] 1,000 ml IV 150 mls/hr
10/19/24 19:11
CXR [CR Chest Portable - 1 View] Urgent
Comment:
Reason For Exam: NG tube placement
Reason Study Needs to be Portable: Unable to Transport
10/19/24 19:24
Lactic Acid Urgent
10/19/24 19:50
Admit/Transfer Patient As Directed
Co-Sign Provider:
Level of Care: Inpatient admission
Assign to:: Telemetry
Physician / Group: Joey
Diagnosis: SBO
Reason for Telemetry: Arrhythmia
Date to Stop Telemetry: 10/22/24
Time to Stop Telemetry: 11:00
Reason for Hospitalization: SBO
Expected length of stay greater than two midnights?: Yes
ELOS- Estimated Length of Stay in days: 3
I certify the patient meets the requirements for IP care: Yes
PRN Pain Medication Management As Directed
May give lesser potent ordered pain med per pt: Yes
preference::
Protocol:: Medication orders for pain may be administered in a
manner that supports deferring to patient preference
when the pt is:
- Requesting an ordered lesser potent pain medication.
Least to most potent pain medications are defined
as: acetaminophen < NSAID < tramadol < opioids
(morphine, oxycodone, hydromorphone).
- Requesting a lesser dose of the same medication IF
ORDERED.
- Requesting a less intrusive route of administration
if both routes are prescribed by the provider (PO <
IV).
10/19/24 19:51
Code Status As Directed
Resuscitation Status: Full Code
10/19/24 20:50
HYDROmorphone [Dilaudid] 0.5 mg IV Q4HPRN PRN
Ondansetron Injectable [Zofran] 4 mg IV Q6HPRN PRN
10/19/24 20:50
SURGICAL CONSULT Routine
Consulting Provider: Shola Benitez
Was physician already notified: Yes
Reason for consult: SBO
Activity As Directed
Activity Level: Ambulate
With Assistance
Gastrointestinal Tubes As Directed
Type: Carolina mensah
To suction?: Yes
Type of suction: Low intermittent
Irrigate tube?: Yes
Irrigant: Tap Water
Frequency: Q4H
Amount in mls: 30
Irrigation Directions: Irrigate Q4H and PRN
I/O [Intake/ Output] As Directed
Frequency: Per unit guidelines
Pneumatic Compression Sleeves As Directed
Type: Knee high
Vital Signs As Directed
Frequency: Per unit guidelines
Weight As Directed
Frequency: Daily
Oxygen Therapy [O2 Therapy] [RESP] Routine
Titrate/Wean O2 to maintain O2 sat greater than (%): 94
PT Consult [Pt Eval And Treat] Routine
Treatment: vestibular eval
Activity Level: Ambulate
With Assistance
DX Deep Vein Thrombosis Video Routine
10/20/24 00:00
Metoprolol [Lopressor] 5 mg IV Q6
10/20/24 06:00
Basic Metabolic Panel IN AM
Complete Blood Count/No Diff IN AM
10/20/24 08:00
Pantoprazole [Protonix IV] 40 mg IV DAILY
10/22/24 11:00
DC Protocol for Telemetry ONCE
Abnormal Lab Results
10/19/24
17:27
WBC 12.9 H 10^3/uL
(4.8-10.8)
Absolute Neuts (auto) 11.4 H 10^3/uL
(1.4-6.5)
Absolute Lymphs (auto) 0.6 L 10^3/uL
(1.2-3.4)
Absolute Monos (auto) 0.7 H 10^3/uL
(0.1-0.6)
Neutrophils % 88.8 H %
(42.2-75.2)
Lymphocytes % 4.9 L %
(20.5-51.1)
Glucose 136 H mg/dl
(70-99)
Albumin 5.1 H g/dl
(3.5-5.0)
10/19/24 17:27
10/19/24 17:27
Vital Signs
Initial and Last Documented VS:
Initial Vital Signs
Temp Pulse Resp BP Pulse Ox
98.6 F 87 24 139/98 96
10/19/24 17:19 10/19/24 17:19 10/19/24 17:19 10/19/24 17:19 10/19/24 17:19
Last Documented Vital Signs
Temp Pulse Resp BP Pulse Ox
97.4 F 100 18 141/87 95
10/19/24 23:37 10/19/24 23:37 10/19/24 23:37 10/19/24 23:37 10/19/24 23:37
*Pulse Oximetry
SaO2: 94
Oxygen Mode of Delivery: Room air
Patient hypoxic: no
*EKG
Interpreted by ED Provider?: Yes
Interpretation: normal
Rate: normal
Rhythm: sinus
Ogema: normal axis
Ischemia: no ischemia
*Powerhouse Mechanic Helper Interpretation
Rate: normal
Interpretation: normal
Rhythm: sinus
*Critical Care Note
Total Time (30-74mins, 75-104mins- exclusive of procedures): 30 minutes
ED Attending Note
-
Portions of this chart may have been created with voice recognition software.� Occasional wrong word or��sound alike� substitutions may have occurred due to the inherent limitations of voice recognition software.
Discharge Plan
Departure
Patient Disposition: Admit
Date of Disposition: 10/19/24
Time of Disposition: 18:56
Admit to: Med/Surg
Presentation/result/management discussed w/ accepting MD/DO: Hospitalist
Discharge Problem:
SBO (small bowel obstruction)
Interventions
Interventions:
*Risk Screen - Suicide Last Done: 10/19/24 17:31
*General Assessment Last Done: 10/19/24 17:31
*Neglect/Abuse Screening Last Done: 10/19/24 17:31
*Nursing Disposition Last Done: 10/19/24 20:40
YJ-Ivxmnb-Fcpxoecjwp Assessment Last Done: 10/19/24 17:31
Discharge Date and Time
Discharge Date/Time: 10/19/24 20:41
[2024-10-19 19:00] VITALS: BP 142/91
[2024-10-19] MEDS: D5/0.9% SODIUM CHLORIDE 1000 IV (19:30)
--- NOTE | 2024-10-19 19:52 | HPS.HSE ---
Family Physician
-
Family Physician: Dewayne Spence
Chief Complaint
-
Abd Pain, N/V
History of Present Illness
Patient is a 74y M with PMH significant for hypertension, BPPV and depression who presents to ED complaining of abdominal pain with N/V. Patient states that his symptoms started last PM with nausea and non-bloody emesis. He woke this AM with
severe abdominal pain. He rested today and drank only water; however, his symptoms did not improve. His pain became more severe throughout the day. He continued to have nausea with multiple episodes of emesis. No bowel movement today. He is
not sure if he passed any flatus.
Patient reports similar episode about 1 year ago. This resolved with NG decompression.
Patient states that he did have prior R inguinal hernia repair around 20yo.
Medical History
Past Medical History
Past Medical History: Reports Other
Additional Past Medical History:
benign paroxysmal positional vertigo,
HTN,
HLD,
depression
Past Surgical History: Reports Other
Additional Past Surgical History:
L knee replacement
L shoulder replacement
4 back operations
R Inguinal Hernia Repair
Social History
Tobacco: Non-smoker
Alcohol: Occasional
Living: Alone
Family History
Family History: Not pertinent
Allergies / Home Medications
Allergies reflects when Allergies were last updated in [employer].
Home Medications with original date entered in [employer]
Allergy/Medication List:
Allergies
Allergy/AdvReac Type Severity Reaction Status Date / Time
No Known Allergies Allergy Verified 10/19/24 17:18
Home Medications
aspirin 81 mg tablet,delayed release 81 mg PO DAILY Heart Disease/Condition 09/27/24
atorvastatin 20 mg tablet (Lipitor) 20 mg PO DAILY High Cholesterol 09/27/24
bupropion HCl 300 mg 24 hr tablet, extended release (Wellbutrin XL) 300 mg PO DAILY Mental Health/Anxiety 09/27/24
diltiazem HCl 240 mg capsule,extended release 24 hr (Cartia XT) 240 mg PO DAILY Blood Pressure 09/27/24
dutasteride 0.5 mg capsule 0.5 mg PO DAILY BPH 09/27/24
escitalopram oxalate 10 mg tablet (Lexapro) 10 mg PO DAILY Mental Health/Anxiety 09/27/24
omeprazole 20 mg capsule,delayed release 20 mg PO DAILY Gastrointestinal Issue 09/27/24
tamsulosin 0.4 mg capsule (Flomax) 0.4 mg PO QPM Urinary Issue 09/27/24
meclizine 25 mg tablet 25 mg PO BID PRN Dizziness 10/19/24
Review of Systems
-
History Source: Patient
A 12 point ROS was completed and negative except as noted: Yes
Constitutional: Reports Fatigue; Denies Fever or Chills
EENT: Denies Sore Throat
Respiratory: Denies Cough or Trouble Breathing
Cardiac: Denies Chest Pain or Palpitations
Abdomen/GI: Reports Abdominal Pain, Nausea and Vomiting; Denies Diarrhea, Bloody Stools or Black Stools
: Denies Dysuria or Frequency
Musculoskeletal: Denies Joint Pain or Edema
Neurological: Reports Dizzy; Denies Headache
Psych: Denies Depression or Anxiety
Physical Exam
Vital Signs
Vital Signs
Temp Pulse Resp BP Pulse Ox
98.6 F 91 29 147/78 94
10/19/24 17:19 10/19/24 18:45 10/19/24 17:45 10/19/24 18:15 10/19/24 18:57
Physical Exam
General: Other (74y M in moderate distress due to pain / nausea.)
HEENT: Other (NG in place draining bilious material.)
Respiratory: Clear; No Wheezes, Rales or Rhonchi
Cardiac: S1/S2 and Regular Rhythm; No Murmur
GI: Other (Abdomen is distended. Bowel sounds are diminished. Diffuse, mild tenderness. No rebound.)
Musculoskeletal: No Clubbing, No Cyanosis and No Edema
Neuro: AO x 3
Laboratory Results
-
10/19/24 17:
10/19/24:
Laboratory Results
Lactic Acid 1.1 mmol/L (0.7-2.0) 10/19/24 19:24
Total Bilirubin 0.8 mg/dl (0.2-1.3) 10/19/24:
AST 30 U/L (17-59) 10/19/24:
ALT 26 U/L (0-50) 10/19/24:
Alkaline Phosphatase 85 U/L (38-126) 10/19/24:
Lipase 60 U/L (23-300) 10/19/24:
Impression/Plan
-
A/P: Patient is a 74y M with PMH significant for hypertension and BPPV who presents to ED complaining of abdominal pain and N/V.
SBO
- Admit for further evaluation and treatment.
- NG placed for decompression in the ED.
- Transition point appears to be in the RLQ - would would be consistent with prior R inguinal hernia repair.
- Pain control, antiemetics, IVFs, etc.
- Follow for clinical improvement / flatus / BM / etc.
- Surgery consulted for further evaluation.
Benign Hypertension
- Stable. Hold PO meds acutely.
- IV Lopressor for now with holding parameters.
BPPV
- Patient reports continued / ongoing issues with positional dizziness since his last hospitalization.
- He has been taking meclizine PRN with temporary improvement.
- He states that he went to a single PT session as an outpatient.
- PT / Vestibular eval.
Depression
- Resume usual meds once tolerating POs.
DVT Prophylaxis: SCDs
Code Status: Full
[2024-10-19 20:00] VITALS: BP 146/86
--- NOTE | 2024-10-19 20:41 | PHANOTE ---
10/19/2024, pt. obtunded at time of interview; pt.'s daughter knows most but not all of pt.'s meds.; used half-way paperwork from [facility], pt.'s daughter, and pharmacy records to compile a list of pt.'s meds.; could not
confirm pt.'s bupropion, clonazepam, diltiazem, miralax, and tadalafil.
--- NOTE | 2024-10-19 20:50 | PTCARENOTE ---
Pt arrived onto floor @2049. Pt AAOx3 and a puller out to the bed. Pt with no complaints of pain or SOB at this time. Pt oriented to room and call rosales; will continue to monitor
[2024-10-19] MEDS: LOPRESSOR 5 MG IV (23:14)
[2024-10-19 23:37] VITALS: BP 141/87
[2024-10-19 23:38] VITALS: BMI 31.0
[2024-10-20] MEDS: D5/0.9% SODIUM CHLORIDE 1000 IV ×4 (02:40→23:14)
[2024-10-20 03:56] VITALS: BP 144/84
[2024-10-20] MEDS: LOPRESSOR 5 MG IV ×4 (05:07→23:16)
[2024-10-20 06:00] VITALS: BMI 31.0
[2024-10-20 07:35] VITALS: BP 129/86
[2024-10-20 08:00] LABS: Hematocrit 39.6 % (39.0-52.0); Hemoglobin 13.8 g/dL (13.0-18.0); Mean Corp Hgb Conc. 34.8 g/dL (33.0-37.0); Mean Corpuscular Volume 86.5 fL (80.0-94.0); Platelet Count 280 10^3/uL (130-400); Red Cell Dist. Width 13.2 % (11.5-14.5)
[2024-10-20] MEDS: DILAUDID 0.5 MG IV ×3 (08:13→20:25)
[2024-10-20] MEDS: PROTONIX IV 40 MG IV (08:14)
[2024-10-20] MEDS: NSS (PRESERVATIVE FREE) 10 ML IV (08:14)
[2024-10-20 08:28] LABS: Blood Urea Nitrogen 12 mg/dl (9-20); Calcium 9.5 mg/dl (8.4-10.2); Carbon Dioxide 27 mmol/L (22-30); Chloride 106 mmol/L (98-107); Estimated Creatinine Clearance 122 ml/min; Glucose 120 mg/dl (70-99); Potassium 4.2 mmol/L (3.5-5.1); Sodium 137 mmol/L (135-145); eGFR > 60.00
[2024-10-20] MEDS: ZOFRAN 4 MG IV (08:30)
--- NOTE | 2024-10-20 10:42 | W.PN.HOSP.TC ---
Today's Communication/Plan
-
see outlined plan below
Assessment / Plan
Assessment / Plan
Assessment:
SBO
- NG placed for decompression in the ED. continue. Added phenol for tube related discomfort
- Transition point appears to be in the RLQ - possibly consistent with prior R inguinal hernia repair.
- Pain control, antiemetics, IVFs, etc.
- Follow for clinical improvement/flatus/BM
- follow General surgery recs
Benign Hypertension
- Stable. Hold PO meds acutely.
- IV Lopressor for now with holding parameters.
BPPV
- Patient reports continued / ongoing issues with positional dizziness since his last hospitalization.
- He has been taking meclizine PRN with temporary improvement.
- He states that he went to a single PT session as an outpatient.
- PT/Vestibular eval.
- consider IV agents prn if symptoms recurrent while NG in place cannot have meclizine PRN
Depression
- Resume usual meds once tolerating POs.
oral herpes labial
- holding oral Valtrex; start Acyclovir ointment
DVT Prophylaxis: SCDs
Code Status: Full
Anticipated Discharge: > 48 hours
Subjective/Interval History
-
Date of Service: October 20, 2024
resting comfortably
NG in place
denies nausea/vomiting
pain controlled
no vertigo symptoms at present
Objective Data
-
Labs:
Laboratory Results
10/20/24
07:48
WBC 9.4
Hgb 13.8
Hct 39.6
Plt Count 280
Sodium 137
Potassium 4.2
Chloride 106
Carbon Dioxide 27
BUN 12
Creatinine 0.7
Glucose 120 H
Calcium 9.5
Vital Signs:
Vital Signs
Temp Pulse Resp BP Pulse Ox
98.7 F 92 20 129/86 96
10/20/24 07:35 10/20/24 07:35 10/20/24 07:35 10/20/24 07:35 10/20/24 07:35
I&O
10/19/24 10/20/24 10/21/24
06:59 06:59 06:59
Intake Total 1560 / 1560
Output Total 1050 / 1050 450 / 450
Balance 510 / 510 -450 / -450
Physical Exam
-
General: No Apparent Distress
HEENT: Normocephalic, Atraumatic and Other (+ NG tube)
Respiratory: Clear to Auscultation; Negative Wheezes or Rales
Cardiac: Regular Rhythm and S1/S2
GI: Soft
Neuro: AO x 3
Psych: Calm
Data Reviewed
-
Total Time Spent with Patient (in minutes): 41
Labs: Labs Reviewed by me
[2024-10-20] MEDS: CHLORASEPTIC/SORE THROAT SPRAY 1 SPRAY PO ×2 (10:56→16:14)
--- NOTE | 2024-10-20 11:01 | CON.GS ---
Addendum entered and electronically signed by Shola Benitez MD 10/20/24 15:49:
Patient seen and examined with surgical specialist earlier this a.m. Agree with portions of documented consultation note with additional details noted here.
HPI: 74-year-old male who is in his usual baseline state of health until 36 hours ago when he began developing generalized abdominal bloating, distention and nausea vomiting. Initially it was more of a discomfort but when he awoke yesterday a.m. he
was in more severe pain. He tried to ride it out at home but due to the persistence of pain he presented for emergency department evaluation yesterday evening and was found to have a small bowel obstruction on CT imaging.
Patient states he had a similar episode like this about 1 year ago which was managed at [facility]. He states that he had an NG tube placed and was hospitalized for 4 to 5 days and subsequently discharged. He does not recall any specific
follow-up for further evaluation after this. He states that he has previously had colonoscopy and was told that there was a tight spot in the distal ileum.
Somewhat difficult to obtain a more detailed history from the patient regarding symptoms that may be more suggestive of a chronic process.
Past medical history notable for hypertension, vertigo, hyperlipidemia and depression. Past surgical history notable for multiple orthopedic procedures but abdominal surgeries only notable for open right inguinal hernia repair.
AFVSS
NAD AAO x 3, uncomfortable appearing due to NG tube. Participatory for history taking.
ABD: Softly distended and tympanitic. Mild tenderness on palpation predominantly central. No rebound, no rigidity, no guarding. Right inguinal surgical scar. No detectable hernias. NG tube in place.
CT abdomen/pelvis 10/19/2024 images personally reviewed as well as radiologist report. Mildly dilated stomach. Numerous loops of significantly dilated small bowel with well-visualized transition point in the right lower quadrant and possible
thickening of the bowel in this area. No pneumatosis, no free air, no portal or mesenteric venous gas. No radiographic evidence suggestive of closed-loop obstruction or internal hernia. Incidental fat-containing umbilical hernia.
Assessment/plan: 74-year-old male with probable high-grade small bowel obstruction but no immediate signs of bowel compromise or threat.
Discussed with patient treatment options including immediate surgical intervention as there does appear to be a well visualized transition point and rather high-grade obstruction. The patient's clear preference was to avoid any urgent surgery
understanding that if his obstruction does not improve with conservative measures further testing and/or surgery would be indicated.
Therefore maintain NG tube decompression, IV fluid hydration and supportive care.
Pending clinical course we will have to have further discussions with patient regarding either consideration of surgical intervention or further diagnostic imaging with enteric contrast.
Will follow
Original Note:
Consultation
-
Date/Time Consultation Requested: 10/19/2024
Date/Time Consultation Performed: 10/20/2024
Requesting Provider: Marc Cook
Performing Provider: Shola Benitez
Reason for Consultation: SBO
Medical History
-
Chief Complaint: 74 y M w/ PMH HTN and BBPV c/o abdominal pain with nausea and vomiting
History of Present Illness:
74 y/o M with PMH of HTN, BPPV, Depression, and Right sided inguinal hernia repair, presented to the ED last night c/o abdominal pain with nausea and vomiting. He states that symptoms started last night with nausea and bloody emesis. Patient states
he woke up in sudden severe abdominal pain. He states the he tried to just drink water afterwards but that did not alleviate any of his pain. The nausea and vomiting continued as well. He states he had no BM or flatus since admission. Patient
reports a similar episode of SBO that occurred a year ago that was eventually resolved with conservative NG tube decompression management. Patient states the he is currently nauseous and feeling bad after receiving his pain medication. He also
states that his general abdominal pain has improved slightly since last night.
Past Medical History
Past Medical History: HTN, Psychiatric (Depression) and Other (BPPV)
Past Surgical History: Hernia Repair (right sided hernia repair 20 years ago) and Orthopedic (Left knee replacement. Left shoulder replacement. 4 back operations. )
Social History
Tobacco: Non-Smoker
Alcohol: Occasional
Drug: None
Living: Alone
Family History
Family History: Reviewed & Not Pertinent
Allergies / Home Medications
Allergy/AdvReac Type Severity Reaction Status Date / Time
No Known Allergies Allergy Verified 10/19/24 17:18
�Medication �Instructions �Recorded �Confirmed �Type
aspirin 81 mg tablet,delayed 81 mg PO DAILY Heart 09/27/24 10/19/24 History
release Disease/Condition
atorvastatin 20 mg tablet (Lipitor) 20 mg PO QPM High Cholesterol 09/27/24 10/19/24 History
bupropion HCl 300 mg 24 hr tablet, 300 mg PO DAILY Mental 09/27/24 09/27/24 History
extended release (Wellbutrin XL) Health/Anxiety
dutasteride 0.5 mg capsule 0.5 mg PO DAILY BPH 09/27/24 10/19/24 History
escitalopram oxalate 10 mg tablet 10 mg PO DAILY Mental 09/27/24 10/19/24 History
(Lexapro) Health/Anxiety
omeprazole 20 mg capsule,delayed 20 mg PO DAILY Gastrointestinal 09/27/24 10/19/24 History
release Issue
tamsulosin 0.4 mg capsule (Flomax) 0.4 mg PO QPM Urinary Issue 09/27/24 10/19/24 History
acetaminophen 500 mg tablet 1,000 mg PO Q6HPRN PRN mild pain 10/19/24 10/19/24 History
(Tylenol Extra Strength)
calcium carbonate (Calcium 600) 600 mg PO DAILY 10/19/24 10/19/24 History
clonazepam 1 mg tablet 1 mg PO DAILYPRN PRN anxiety 10/19/24 History
diltiazem HCl 240 mg 240 mg PO DAILY 10/19/24 History
capsule,extended release 24 hr
(Cartia XT)
fluticasone propionate 50 1 spray intranasal DAILY 10/19/24 10/19/24 History
mcg/actuation nasal
spray,suspension
ibuprofen 800 mg tablet 800 mg PO Q6HPRN PRN mild pain 10/19/24 10/19/24 History
lisinopril 20 mg tablet 20 mg PO DAILY 10/19/24 10/19/24 History
meclizine 12.5 mg tablet 12.5 mg PO BIDPRN PRN dizziness 10/19/24 10/19/24 History
naproxen sodium 220 mg tablet 440 mg PO Q8HPRN PRN mild pain 10/19/24 10/19/24 History
(Aleve)
polyethylene glycol 3350 17 gram 17 g PO DAILYPRN PRN constipation 10/19/24 History
oral powder packet (Miralax)
tadalafil 10 mg tablet 10 mg PO DAILYPRN PRN ED 10/19/24 History
therapeutic multivitamin 1 tab PO DAILY 10/19/24 10/19/24 History
valacyclovir 1 gram tablet 2,000 mg PO BID 10/19/24 10/19/24 History
Review of Systems
-
Unable to obtain full review of systems at this time due to: Other (Patienet in alot of pain after being given his Dilaudid medication. )
History Source: Patient
All other systems: Negative unless noted
Constitutional: Fatigue
Abdomen/GI: Abdominal Pain, Nausea and Vomiting
Neurological: Dizzy
A 10 point review of systems was completed, and was negative except as per HPI.
Physical Exam
Vital Signs
Temp Pulse Resp BP Pulse Ox
98.7 F 92 20 129/86 96
10/20/24 07:35 10/20/24 07:35 10/20/24 07:35 10/20/24 07:35 10/20/24 07:35
10/19/24 10/20/24 10/21/24
06:59 06:59 06:59
Actual Weight 109.429 kg
Body Mass Index (BMI) 31.0
Lab Results
10/20/24 07:48
10/20/24 07:48
WBC 9.4 10^3/uL (4.8-10.8) 10/20/24 07:48
Hgb 13.8 g/dL (13.0-18.0) 10/20/24 07:48
Hct 39.6 % (39.0-52.0) 10/20/24 07:48
Plt Count 280 10^3/uL (130-400) 10/20/24 07:48
Abs Immat Gran (auto) 0.0 10^3/uL (0-0.05) 10/19/24 17:27
Neutrophils % 88.8 % (42.2-75.2) H 10/19/24 17:27
AFVSS: (BP mildly elevated at (148/81)
Labs: WBC trending downward (9.4) today.
Physical Exam
General: Pain (In moderate distress from the pain)
HEENT: Other (NG tube in place draining bilious material.)
Respiratory: Non Labored Respirations
Breast: Deferred by me
GI: Tender, Distended and Other (Bowel sounds diminished. Diffuse, mildly tender, No rebound. )
Neuro: AO x 3
Psych: Agitated
Data Reviewed
-
Radiology: Image Personally Visualized and interpreted and Report Reviewed by me
CT Scan: Image Personally Visualized and interpreted (Numerous dilated loops of small bowel with transition point in RLQ (associated edema in left hemiabdomen indicating high grade obstruction). Normal appendix. Cholelithiasis. ), Report Reviewed by
me and Discussed with Physician
Labs: Labs Reviewed by me and Discussed with Physician
Critical Care Time (in minutes): 35
Total Time Spent with Patient (in minutes): 40
Assessment / Plan
-
74 y/o M with PMH significant for HTN, BPPV, Depression and Right sided inguinal hernia repair. presented to the ED last night with severe abdominal pain along with nausea and vomiting. Patient had similar episode a year ago that was resolved with
NG tube decompression.
CT Abdomen/Pelvis indicates numerous dilated loops of small bowel with transition point in RLQ (associated edema in left brandon-abdomen indicates high grade obstruction).
Diagnosis: SBO
- Continue Conservative Management with NG tube decompression. Allow small bowel to relax.
- Continue Pain control, antiemetics, IVFs, etc.
- Follow for clinical improvement/flatus/BM
- Follow labs and vitals to see any trends in regards to inflammation/infection
- If patient feels better, we can repeat scans.
- If no improvement, reconsider surgery option.
- Surgical team will continue to monitor.
[2024-10-20 11:21] VITALS: BP 123/70
[2024-10-20] MEDS: ZOVIRAX OINTMENT 5% 1 APPLIC TOPICAL ×3 (12:19→20:24)
[2024-10-20 15:19] VITALS: BP 141/84
[2024-10-20] MEDS: ZOVIRAX OINTMENT 5% TOPICAL (17:14)
--- NOTE | 2024-10-20 18:05 | CM ---
Chart reviewed and patient with SBO, NG tube, patient lives at [facility] independent living is independent with adl's and ambulation, no dme, patient drives home when stable, no needs.
PCP: Dr. Dewayne Spence
Pharmacy; [facility].
[2024-10-20 19:00] VITALS: BP 132/74
[2024-10-20] MEDS: ANESTHETIC LOZENGE 1 LOZENGE PO (20:11)
[2024-10-20 23:00] VITALS: BP 135/80
[2024-10-21] VITALS (14 sets, daily range): BP systolic 0–159; BP diastolic 59–83; BMI 31.5
[2024-10-21] MEDS: DILAUDID 0.5 MG IV ×5 (00:36→17:43)
[2024-10-21 00:50] LABS: Urine Character Clear (Clear)
[2024-10-21 01:13] LABS: Urine Red Blood Cell None Seen /HPF (0-2); Urine Squamous Cell 0-2 /LPF (Few); Urine White Cell 0-2 /HPF (0-5)
[2024-10-21] MEDS: ANESTHETIC LOZENGE 1 LOZENGE PO ×2 (03:32→20:23)
[2024-10-21] MEDS: LOPRESSOR 5 MG IV ×2 (05:21→17:44)
[2024-10-21] MEDS: D5/0.9% SODIUM CHLORIDE 1000 IV ×2 (05:22→15:45)
[2024-10-21 08:37] LABS: Hematocrit 35.2 % (39.0-52.0); Hemoglobin 11.9 g/dL (13.0-18.0); Mean Corp Hgb Conc. 33.8 g/dL (33.0-37.0); Mean Corpuscular Volume 88.0 fL (80.0-94.0); Platelet Count 192 10^3/uL (130-400); Red Cell Dist. Width 13.2 % (11.5-14.5)
[2024-10-21 08:51] LABS: Blood Urea Nitrogen 10 mg/dl (9-20); Calcium 8.3 mg/dl (8.4-10.2); Carbon Dioxide 26 mmol/L (22-30); Chloride 106 mmol/L (98-107); Estimated Creatinine Clearance 123 ml/min; Glucose 99 mg/dl (70-99); Potassium 3.9 mmol/L (3.5-5.1); Sodium 137 mmol/L (135-145); eGFR > 60.00
[2024-10-21] MEDS: NSS (PRESERVATIVE FREE) 10 ML IV (09:09)
[2024-10-21] MEDS: PROTONIX IV 40 MG IV (09:10)
[2024-10-21] MEDS: ZOVIRAX OINTMENT 5% 1 APPLIC TOPICAL ×3 (09:10→20:55)
[2024-10-21] MEDS: OFIRMEV 100 IV ×3 (09:17→20:38)
--- NOTE | 2024-10-21 09:48 | W.PN.HOSP.TC ---
Today's Communication/Plan
-
to OR today
Assessment / Plan
Assessment / Plan
Assessment:
SBO
- continue NG for decompression in the ED. continue phenol for tube related discomfort
- Transition point appears to be in the RLQ - possibly consistent with prior R inguinal hernia repair.
- Pain control, antiemetics, IVFs, etc.
- Follow for clinical improvement/flatus/BM
- follow General surgery recs; with no improvement over last 24 hours; will proceed to OR for intervention today.
Benign Hypertension
- Stable. Hold PO meds acutely.
- IV Lopressor for now with holding parameters.
BPPV
- Patient reports continued / ongoing issues with positional dizziness since his last hospitalization.
- He has been taking meclizine PRN with temporary improvement.
- He states that he went to a single PT session as an outpatient.
- PT/Vestibular eval.
- consider IV agents prn if symptoms recurrent while NG in place cannot have meclizine PRN
Depression
- Resume usual meds once tolerating POs.
oral herpes labial
- holding oral Valtrex; continue Acyclovir ointment
DVT Prophylaxis: SCDs
Code Status: Full
Anticipated Discharge: > 48 hours
Subjective/Interval History
-
Date of Service: October 21, 2024
NGT with >700 cc output, also with ongoing pain requiring multiple IV meds
Objective Data
-
Labs:
Laboratory Results
10/21/24
07:54
WBC 6.2
Hgb 11.9 L
Hct 35.2 L
Plt Count 192 D
Sodium 137
Potassium 3.9
Chloride 106
Carbon Dioxide 26
BUN 10
Creatinine 0.7
Glucose 99
Calcium 8.3 L
Vital Signs:
Vital Signs
Temp Pulse Resp BP Pulse Ox
97.9 F 61 18 159/83 96
10/21/24 07:35 10/21/24 07:35 10/21/24 07:35 10/21/24 07:35 10/21/24 07:35
I&O
10/20/24 10/21/24 10/22/24
06:59 06:59 06:59
Intake Total 1560 / 1560 90 / 90
Output Total 1050 / 1050 3100 / 3100
Balance 510 / 510 -3010 / -3010
Physical Exam
-
General: No Apparent Distress
HEENT: Normocephalic and Atraumatic
Respiratory: Negative Wheezes
Cardiac: Regular Rhythm and S1/S2
GI: Tender and Distended
Neuro: AO x 3
Psych: Calm
Data Reviewed
-
Total Time Spent with Patient (in minutes): 45
Labs: Labs Reviewed by me
--- NOTE | 2024-10-21 09:54 | W.PN.GS2 ---
Addendum entered and electronically signed by Skinny Long MD 10/21/24 16:11:
I saw and examined the patient independently.
The resident's documentation was reviewed and I agree with the note, assessment and plan except where noted below.
Comment: This is a 74-year-old male presents with a high-grade small bowel obstruction of unclear etiology as he has no prior abdominal surgeries and no hernias on CT imaging or exam.
Will plan for a diagnostic laparoscopy today.
Risks/Benefits/Alternatives, expected postoperative course and possible complications (bleeding, infection, injury to surrounding structures, acute/chronic pain) discussed at length. Patient wishes to proceed with surgery. All questions answered.
Consent obtained.
I spent 50 minutes in total for the care of this patient today including direct patient care and counseling, reviewing labs, imaging, coordination of care, as well as documentation.
Original Note:
Today's Communication / Plan
-
Continue nausea medication for patient
Order Valium for continued management of pain
Keep NG tube in and patient NPO with IVF in preparation for surgery later today.
Schedule laparoscopic surgery for patient this afternoon
Call Emily (daughter) to update her on progress post op.
Assessment / Plan
-
74-year-old male with probable high-grade small bowel obstruction but no immediate signs of bowel compromise or threat.
Discussed with patient treatment options including immediate surgical intervention as there does appear to be a well visualized transition point and rather high-grade obstruction. The patient's previous preference was to avoid any urgent surgery
understanding that if his obstruction does not improve with conservative measures further testing and/or surgery would be indicated. After his condition worsened overnight, patient seemed more amenable to the idea of having surgery. After Dr. Long
educated patient on the laparascopic procedure and its associated risks, patient ultimately agreed to undergo laparoscopic surgery scheduled for this afternoon.
Time Spent
Total Time Spent with Patient (in minutes): 35
Subjective Data
-
Date of Service: October 21, 2024
74 y/o M with PMH significant for HTN, BBPV, Depression and Right sided inguinal hernia, presents with abdominal pain with nausea and vomiting. Patient states that his has happened before a year ago and resolved with conservative NG tube
decompression. Patient appears to be in discomfort with the NG tube in place draining bilious material. Patient ultimately chose to undergo laparoscopic surgery later today. Patient states he has severe nausea, and abdominal pain. Patient denies any
vomiting, bowel movements, flatus. Patient is having a hard time ambulating OOB. He also admits to having episodes of burping.
Objective Data
-
Intake and Output
10/20/24 10/21/24 10/22/24
06:59 06:59 06:59
Intake Total 1560 / 1560 90 / 90
Output Total 1050 / 1050 3100 / 3100
Balance 510 / 510 -3010 / -3010
Intake:
IV fluids (Total) 1500 / 1500
Amount instilled into GI Tube ( 60 / 60 90 / 90
Total)
[place] Sump 60 / 60 90 / 90
Output:
Gastrointestinal tube output ( 650 / 650 1450 / 1450
Total)
[place] Sump 150 / 150 1450 / 1450
Urine, Voided 400 / 400 1650 / 1650
Other:
Number of approximated SMALL 1
amounts of urine
Number of approximated MODERATE 1 1
amounts of urine
Vital Signs
Temp Pulse Resp BP Pulse Ox
97.9 F 61 18 159/83 96
10/21/24 07:35 10/21/24 07:35 10/21/24 07:35 10/21/24 07:35 10/21/24 07:35
Lab Results
10/21/24 07:54
10/21/24 07:54
Calcium 8.3 mg/dl (8.4-10.2) L 10/21/24 07:54
Total Bilirubin 0.8 mg/dl (0.2-1.3) 10/19/24 17:27
AST 30 U/L (17-59) 10/19/24 17:27
ALT 26 U/L (0-50) 10/19/24 17:27
Alkaline Phosphatase 85 U/L (38-126) 10/19/24 17:27
Total Protein 8.1 g/dl (6.3-8.2) 10/19/24 17:27
Albumin 5.1 g/dl (3.5-5.0) H 10/19/24 17:27
CT abdomen/pelvis: Mildly dilated stomach. Numerous loops of significantly dilated small bowel with well-visualized transition point in the right lower quadrant and possible thickening of the bowel in this area. No pneumatosis, no free air, no
portal or mesenteric venous gas. No radiographic evidence suggestive of closed-loop obstruction or internal hernia. Incidental fat-containing umbilical hernia.
Physical Exam
-
AFVSS
Gen: AAO x 3, uncomfortable appearing due to NG tube. Participatory for history taking.
ABD: Softly distended and tympanitic. Mild tenderness on palpation predominantly central. No rebound, no rigidity, no guarding. Right inguinal surgical scar. No detectable hernias. NG tube in place.
Patient has a green catheter: No
Patient has a central line: No
--- NOTE | 2024-10-21 10:34 | PN.CDI ---
CDI
- -
CDI:
Physician Documentation Request
Admit Date: 10/19/24 20:33
Dear Doctor,
Please review the following and provide your response in the progress notes.
Clinical Indicators:
Pt admitted with SBO
Surgery consult and note 10/21, ' ... probable high-grade small bowel obstruction
Progress note 10/21,SBO... Transition point appears to be in the RLQ - possibly consistent with prior R inguinal hernia repair....'
Please provide the severity and suspected Etiology of the documented SBO:
Complete SBO due to prior surgery/adhesions
Partial SBO due to Prior surgery /adhesions
Complete SBO due to other cause
Partial SBO due to other cause
Other ( please specify)
Use of terms such as suspected, likely, concern for, or probable (associated with a specific diagnosis that is being evaluated, monitored, or treated as if it exists) are acceptable and can be coded in the inpatient setting, when documented at the
time of discharge.
Thank you,
Megan Akins RN
CDI Specialist
[place] [facility]
Please use your independent medical judgment in providing your response.
--- NOTE | 2024-10-21 10:47 | W.SUR.PREOP ---
Pre-Operative Surgical Note
-
I have examined this patient prior to the performance of the scheduled procedure.
The patient's condition is unchanged from the time of the current History and
Physical and the patient is able to undergo the scheduled procedure.
[2024-10-21] MEDS: ZOVIRAX OINTMENT 5% TOPICAL ×2 (12:56→15:43)
[2024-10-21] MEDS: D5/0.9% SODIUM CHLORIDE IV (12:56)
[2024-10-21] MEDS: LOPRESSOR IV (12:56)
--- NOTE | 2024-10-21 13:10 | W.IMMPOSTOP ---
Surgical Immed Post Op Note
-
Primary Surgeon: Skinny Long MD
Assisting Surgeon: None
Pre-op Diagnosis: Small bowel obstruction
Post-op Diagnosis: Small bowel obstruction, small bowel mass
Procedure Performed:
1. Diagnostic laparoscopy converted to mini laparotomy
2. Open small bowel resection
Anesthesia Type: General
Specimen / Cultures: Small bowel
Estimated Blood Loss: 3 cc
Complications: None
Operative Findings: Four-port diagnostic laparoscopy after safe Veress entry. Ligament of Treves identified and bowel run in a retrograde manner until in the area of obstruction with clear transition from decompressed to dilated bowel was
identified. This appeared to be secondary to small bowel folded in on itself and appeared firm so we converted to a mini laparotomy with extraction of the small bowel in question. 2 cm firm bowel palpated concerning for malignancy. A small bowel
resection was performed 5 cm either side of the lesion using a Thuan technique with 2 fires of the VIVIENNE 80 purple stapling device. The common common enterotomy staple line was oversewn with 2-0 silk pops, 2 crotch stitches were placed and the
mesenteric defect was closed. The small bowel anastomosis was returned to the abdomen and pneumoperitoneum was reestablished. The off midline ports were removed under direct visualization, and our laparotomy incision was closed with running 0 PDS
suture anchored at each apex, run towards the middle and tied together. All incisions were covered with Dermabond.
POST OP PLAN:
Imaging: None
Labs: Routine AM
Diet: N.p.o., NG tube to low intermittent wall suction.
Analgesia: Tylenol 650mg q6 Marianna, okay for Toradol, Dilaudid 0.5mg q2h PRN
Neuro/vascular checks: Per unit
AC/AP: Hold Therapeutic AC, Ok for DVT PPx
Activity: Ad Jocelyn
Wound/Incisions/Drains: Routine
Abx: None
Dispo: RNF, awaiting return of bowel function.
--- NOTE | 2024-10-21 13:18 | OR.RPT ---
Operative Report
Operative Report
Patient Name: Srinivasa Sanches
: 09/11/1949
Date of Operation: 10/22/2019
Preoperative Diagnosis: SBO
Postoperative Diagnosis: Small bowel obstruction, small bowel mass
Procedure(s):
Diagnostic Laparoscopy
Open small bowel resection
Surgeon(s):
Dr. Long
Stainless Steel Finisher(s):
Horacio Carter ([email or web address]-S)
Anesthesia: General
Estimated Blood Loss: 3 cc
Urine Output: None
Drains/Lines/Implants: None
Specimens:
1. Small Bowel
HPI/Surgical Indications:
This is a 74 year old male who presented to our hospital with abdominal pain and found to have a small bowel obstruction of unclear etiology despite no hernias or prior intra-abdominal surgery. The patient did report a history of diverticulitis
which was managed nonoperatively. Risks/Benefits/Alternatives were discussed at length, and the patient agreed to proceed with surgery.
Operative Findings: Four-port diagnostic laparoscopy after safe Veress entry. Ligament of Treves identified and bowel run in a retrograde manner until in the area of obstruction with clear transition from decompressed to dilated bowel was
identified. This appeared to be secondary to small bowel folded in on itself and appeared firm so we converted to a mini laparotomy with extraction of the small bowel in question. 2 cm firm bowel palpated concerning for malignancy. A small bowel
resection was performed 5 cm either side of the lesion using a Thuan technique with 2 fires of the VIVIENNE 80 purple stapling device. The common common enterotomy staple line was oversewn with 2-0 silk pops, 2 crotch stitches were placed and the
mesenteric defect was closed. The small bowel anastomosis was returned to the abdomen and pneumoperitoneum was reestablished. The off midline ports were removed under direct visualization, and our laparotomy incision was closed with running 0 PDS
suture anchored at each apex, run towards the middle and tied together. All incisions were covered with Dermabond.
Procedure Description:
The patient was brought to the Operating Room and placed in the supine position with the arms tucked. IV antibiotics were infused and Venodyne stockings placed. Following uneventful induction of general endotracheal anesthesia, the abdomen was
prepped and draped in the usual sterile fashion. The abdomen was entered using a left subcostal Veress technique which required a single pass, followed by a 5 mm right upper quadrant Optiview trocar. Pneumoperitoneum to 15 mmHg pressure was
obtained without difficulty and we confirmed that no injury had occurred during our entry. We then placed 3 additional 5 mm ports in the right lower quadrant, left lower quadrant and just above the umbilicus. Proximal dilated bowel as well as
distal decompressed bowel was readily identified. The ligament of Treves was identified and then run in a retrograde manner. The area of transition was identified with a loop of bowel that appeared to be matted in on itself and with manipulation
of the instruments appeared to be rather firm concerning for a mass. This area was clamped with a laparoscopic grasper and then we converted to a mini midline laparotomy incorporating her previous 5 mm port and placing a small Tres device to
extracorporealized the bowel. There was indeed a palpable mass here but it appeared to be focal and there was no other intra-abdominal evidence of malignancy or peritoneal implants. Transection points were identified 5 cm proximal distal to the
lesion and the intervening mesentery was taken down towards its root. We elected to do a small bowel resection with [id number] functional end-to-end stapled anastomosis. This was done using Thuan technique with 2 fires of an 80 VIVIENNE purple
stapler. The final staple line was imbricated using 2-0 silk pops. An anastomotic crotch stitch x2 was placed to reduce any tension. The mesenteric defect was closed using a running 2-0 silk suture. After confirming the anastomosis was patent
the bowels were returned to the abdomen, the Tres wound retractor was removed and the fascia was closed using two-0 PDS sutures tied at either end and run to the middle. The midline incision was closed with interrupted 3-0 Vicryl sutures followed
by glue, the 5 mm port sites were closed with 4-0 Monocryl and glue. Overall, the patient tolerated the procedure well and was taken to the Recovery Room postoperatively in stable condition.
I was the attending physician and performed the procedure with assistance of the PA student above. I was present for all portions of the case.
Skinny Long MD
[2024-10-21] MEDS: DILAUDID 0.25 MG IV (13:40)
--- NOTE | 2024-10-21 14:33 | PTCARENOTE ---
Received pt from PACU via bed. Pt AAOX3. 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 Pox: 93% 2 L NC. Call rosales within reach. Daughter at bedside. Plan of care ongoing.
[2024-10-21] MEDS: DILAUDID 1 MG IV (20:34)
[2024-10-21] MEDS: CHLORASEPTIC/SORE THROAT SPRAY 1 SPRAY PO (20:58)
[2024-10-22] VITALS (8 sets, daily range): BP systolic 119–169; BP diastolic 50–85
[2024-10-22] MEDS: LOPRESSOR IV ×4 (00:21→17:20)
[2024-10-22] MEDS: DILAUDID 1 MG IV ×4 (01:20→10:24)
[2024-10-22] MEDS: VALIUM INJECTION 2 MG IV ×2 (02:53→22:09)
[2024-10-22] MEDS: OFIRMEV 100 IV ×3 (02:54→20:09)
[2024-10-22] MEDS: D5/0.9% SODIUM CHLORIDE 1000 IV ×3 (03:13→16:31)
[2024-10-22 06:49] LABS: Hematocrit 32.6 % (39.0-52.0); Hemoglobin 11.1 g/dL (13.0-18.0); Mean Corp Hgb Conc. 34.0 g/dL (33.0-37.0); Mean Corpuscular Volume 88.8 fL (80.0-94.0); Platelet Count 211 10^3/uL (130-400); Red Cell Dist. Width 12.9 % (11.5-14.5)
[2024-10-22 07:52] LABS: Blood Urea Nitrogen 11 mg/dl (9-20); Calcium 8.3 mg/dl (8.4-10.2); Carbon Dioxide 28 mmol/L (22-30); Chloride 104 mmol/L (98-107); Estimated Creatinine Clearance 123 ml/min; Glucose 101 mg/dl (70-99); Magnesium 1.9 mg/dl (1.6-2.3); Potassium 3.7 mmol/L (3.5-5.1); Sodium 136 mmol/L (135-145); eGFR > 60.00
[2024-10-22] MEDS: ZOVIRAX OINTMENT 5% 1 APPLIC TOPICAL ×3 (08:13→22:08)
[2024-10-22] MEDS: NSS (PRESERVATIVE FREE) 10 ML IV (08:14)
[2024-10-22] MEDS: PROTONIX IV 40 MG IV (08:14)
[2024-10-22] MEDS: ZOVIRAX OINTMENT 5% TOPICAL ×2 (11:12→17:20)
--- NOTE | 2024-10-22 14:18 | W.PN.GS2 ---
Addendum entered and electronically signed by Oj Jaramillo MD 10/23/24 12:58:
I saw and examined the patient.
The Nursing Technician's note was reviewed and I agree with the note.
Original Note:
Today's Communication / Plan
-
NGT/NPO
Pain management
Assessment / Plan
-
74 yo male presenting with SBO secondary to small bowel mass
POD #1 Diagnostic laparoscopy converted to mini laparotomy for SBR
AFVSS
Await bowel recovery
OR path pending
Plan:
C/W NGT to LIWS
NPO except ice chips
Analgesics adjusted for better control
IVF while NPO (medicine team managing)
Trend labs
Diazepam IV prn anxiety
PPI for GI ppx
Lovenox for VTE ppx, scds while in bed
Encourage activity/OOB
Subjective Data
-
Date of Service: October 22, 2024
Pt seen and examined at bedside. Denies n/v. Not yet passing gas. Pain control has been an issue. Expressing anxiety about his pain. C/O sore throat. voiding without difficulty
Objective Data
-
Intake and Output
10/21/24 10/22/24 10/23/24
06:59 06:59 06:59
Intake Total 90 / 90 795 / 795
Output Total 3100 / 3100 950 / 950 450 / 450
Balance -3010 / -3010 -155 / -155 -450 / -450
Intake:
IV fluids (Total) 575 / 575
normosol 125 / 125
IV piggybacks 100 / 100
Amount instilled into GI Tube ( 90 / 90 120 / 120
Total)
[place] Sump 90 / 90 120 / 120
Output:
Drain Output (Total) 0 / 0
Right Sump 0 / 0
Gastrointestinal tube output ( 1450 / 1450 100 / 100
Total)
[place] Sump 1450 / 1450 100 / 100
Urine, Voided 1650 / 1650 850 / 850 450 / 450
Other:
Number of approximated SMALL 1
amounts of urine
Number of approximated MODERATE 1
amounts of urine
Vital Signs
Temp Pulse Resp BP Pulse Ox
97.9 F 58 18 138/78 95
10/22/24 11:30 10/22/24 12:35 10/22/24 11:30 10/22/24 12:35 10/22/24 11:30
Lab Results
10/22/24 05:22
10/22/24 05:22
Calcium 8.3 mg/dl (8.4-10.2) L 10/22/24 05:22
Phosphorus 3.4 mg/dl (2.5-4.5) 10/22/24 05:22
Magnesium 1.9 mg/dl (1.6-2.3) 10/22/24 05:22
Total Bilirubin 0.8 mg/dl (0.2-1.3) 10/19/24 17:27
AST 30 U/L (17-59) 10/19/24 17:27
ALT 26 U/L (0-50) 10/19/24 17:27
Alkaline Phosphatase 85 U/L (38-126) 10/19/24 17:27
Total Protein 8.1 g/dl (6.3-8.2) 10/19/24 17:27
Albumin 5.1 g/dl (3.5-5.0) H 10/19/24 17:27
Physical Exam
-
Anxious
ABD soft, expected tenderness above midline incision, mild distention
NGT with bilious/blood tinged outputs
Incisions well approximated with intact glue
Patient has a green catheter: No
Patient has a central line: No
[2024-10-22] MEDS: TORADOL 30 MG IV ×2 (14:24→20:09)
--- NOTE | 2024-10-22 15:56 | W.PN.HOSP.TC ---
Today's Communication/Plan
-
continue current plan of care per GS
Assessment / Plan
Assessment / Plan
Assessment:
SBO
- s/p Diagnostic laparoscopy converted to mini laparotomy for SBR with finding of small bowel mass (path pending)
- continue NG for decompression. continue phenol for tube related discomfort
- NPO/IVF
- pain control, anti-emetics
- monitor for ROBF
- follow GS recs
Benign Hypertension
- Stable. Hold PO meds acutely.
- IV Lopressor for now with holding parameters.
BPPV
- Patient reports continued / ongoing issues with positional dizziness since his last hospitalization.
- He has been taking meclizine PRN with temporary improvement.
- He states that he went to a single PT session as an outpatient.
- PT/Vestibular eval.
- consider IV agents prn if symptoms recurrent while NG in place cannot have meclizine PRN
Depression
- Resume usual meds once tolerating POs.
oral herpes labial
- holding oral Valtrex; continue Acyclovir ointment
DVT Prophylaxis: Lovenox
Code Status: Full
Anticipated Discharge: > 48 hours
Subjective/Interval History
-
Date of Service: October 22, 2024
s/p bowel resection. reports pain earlier better controlled now
NG in place
Objective Data
-
Labs:
Laboratory Results
10/22/24
05:22
WBC 5.8
Hgb 11.1 L
Hct 32.6 L
Plt Count 211
Sodium 136
Potassium 3.7
Chloride 104
Carbon Dioxide 28
BUN 11
Creatinine 0.7
Glucose 101 H
Calcium 8.3 L
Vital Signs:
Vital Signs
Temp Pulse Resp BP Pulse Ox
97.9 F 58 18 138/78 95
10/22/24 11:30 10/22/24 12:35 10/22/24 11:30 10/22/24 12:35 10/22/24 11:30
I&O
10/21/24 10/22/24 10/23/24
06:59 06:59 06:59
Intake Total 90 / 90 795 / 795
Output Total 3100 / 3100 950 / 950 450 / 450
Balance -3010 / -3010 -155 / -155 -450 / -450
Physical Exam
-
General: No Apparent Distress
HEENT: Normocephalic, Atraumatic and Other (+ NG tube)
Respiratory: Negative Wheezes
Cardiac: Regular Rhythm and S1/S2
GI: Soft
Genito-urinary: No Costovertebral Tender
Neuro: AO x 3
Psych: Calm
Data Reviewed
-
Total Time Spent with Patient (in minutes): 44
Labs: Labs Reviewed by me
[2024-10-22] MEDS: LOVENOX 40 MG SC (17:23)
[2024-10-22] MEDS: ANESTHETIC LOZENGE 1 LOZENGE PO (22:09)
[2024-10-23] MEDS: LOPRESSOR IV ×4 (00:49→17:08)
[2024-10-23] MEDS: OFIRMEV 100 IV ×4 (01:14→22:39)
[2024-10-23] MEDS: TORADOL 30 MG IV ×2 (01:14→07:45)
[2024-10-23] MEDS: D5/0.9% SODIUM CHLORIDE 1000 IV ×2 (02:21→13:01)
[2024-10-23 03:10] VITALS: BP 156/67
[2024-10-23 06:23] LABS: Hematocrit 31.0 % (39.0-52.0); Hemoglobin 10.8 g/dL (13.0-18.0); Mean Corp Hgb Conc. 34.8 g/dL (33.0-37.0); Mean Corpuscular Volume 87.8 fL (80.0-94.0); Platelet Count 189 10^3/uL (130-400); Red Cell Dist. Width 12.9 % (11.5-14.5)
[2024-10-23] MEDS: DILAUDID 1 MG IV ×2 (06:25→12:18)
[2024-10-23 06:47] LABS: Blood Urea Nitrogen 11 mg/dl (9-20); Calcium 8.2 mg/dl (8.4-10.2); Carbon Dioxide 26 mmol/L (22-30); Chloride 108 mmol/L (98-107); Estimated Creatinine Clearance 123 ml/min; Glucose 85 mg/dl (70-99); Potassium 3.5 mmol/L (3.5-5.1); Sodium 139 mmol/L (135-145); eGFR > 60.00
[2024-10-23 07:25] VITALS: BP 136/55
[2024-10-23] MEDS: VALIUM INJECTION 2 MG IV (07:44)
[2024-10-23] MEDS: ZOVIRAX OINTMENT 5% 1 APPLIC TOPICAL ×5 (07:45→22:38)
[2024-10-23] MEDS: ZOFRAN 4 MG IV ×2 (07:45→19:29)
[2024-10-23] MEDS: NSS (PRESERVATIVE FREE) 10 ML IV (07:46)
[2024-10-23] MEDS: PROTONIX IV 40 MG IV (07:46)
[2024-10-23 11:30] VITALS: BP 141/68
--- NOTE | 2024-10-23 11:34 | W.PN.GS2 ---
Addendum entered and electronically signed by Oj Jaramillo MD 10/23/24 12:50:
I saw and examined the patient.
The Refueling Rampman's note was reviewed and I agree with the note.
Comment: Reports improved pain control, passing flatus, low NGT output, remains distended and mild-mod ttp on exam, incisions cdi. For clamp trial today
Original Note:
Today's Communication / Plan
-
Clamp trial
Assessment / Plan
-
74 yo male presenting with SBO secondary to small bowel mass
POD #2 Diagnostic laparoscopy converted to mini laparotomy for SBR
AFVSS
OR path pending
+passing flatus, still with some distention
Plan:
Clamp trial of NGT
NPO except ice chips
C/W scheduled and prn analagesics
IVF while NPO (medicine team managing)
Trend labs
Diazepam IV prn anxiety until able to resume oral Klonopin
PPI for GI ppx
Lovenox for VTE ppx, scds while in bed
Encourage activity/OOB
Subjective Data
-
Date of Service: October 23, 2024
Pt seen and examined at bedside with Dr. Jaramillo. Denies n/v. Passing some flatus. Pain better today.
Objective Data
-
Intake and Output
10/22/24 10/23/24 10/24/24
06:59 06:59 06:59
Intake Total 795 / 795 360 / 360
Output Total 950 / 950 750 / 750 500 / 500
Balance -155 / -155 -750 / -750 -140 / -140
Intake:
Oral fluids 360 / 360
IV fluids (Total) 575 / 575
normosol 125 / 125
IV piggybacks 100 / 100
Amount instilled into GI Tube ( 120 / 120
Total)
[place] Sump 120 / 120
Output:
Drain Output (Total) 0 / 0
Right Sump 0 / 0
Gastrointestinal tube output ( 100 / 100
Total)
[place] Sump 100 / 100
Urine, Voided 850 / 850 750 / 750 500 / 500
Other:
Number of approximated MODERATE 1
amounts of urine
Vital Signs
Temp Pulse Resp BP Pulse Ox
98.0 F 48 16 136/55 95
10/23/24 07:25 10/23/24 11:31 10/23/24 07:25 10/23/24 11:31 10/23/24 07:25
Lab Results
10/23/24 05:03
10/23/24 05:02
Calcium 8.2 mg/dl (8.4-10.2) L 10/23/24 05:02
Phosphorus 3.4 mg/dl (2.5-4.5) 10/22/24 05:22
Magnesium 1.9 mg/dl (1.6-2.3) 10/22/24 05:22
Total Bilirubin 0.8 mg/dl (0.2-1.3) 10/19/24 17:27
AST 30 U/L (17-59) 10/19/24 17:27
ALT 26 U/L (0-50) 10/19/24 17:27
Alkaline Phosphatase 85 U/L (38-126) 10/19/24 17:27
Total Protein 8.1 g/dl (6.3-8.2) 10/19/24 17:27
Albumin 5.1 g/dl (3.5-5.0) H 10/19/24 17:27
Physical Exam
-
Anxious
ABD soft, expected tenderness above midline incision, mild distention
NGT with minimal gastric outputs
Incisions well approximated with intact glue
Patient has a green catheter: No
Patient has a central line: No
--- NOTE | 2024-10-23 13:13 | W.PN.HOSP.TC ---
Today's Communication/Plan
-
await clamp trial results; possibly start clears if ok with surgical service
Assessment / Plan
Assessment / Plan
Assessment:
SBO
- s/p Diagnostic laparoscopy converted to mini laparotomy for SBR with finding of small bowel mass (path pending)
- NGT tube currently clamped
- NPO/IVF
- pain control, anti-emetics
- monitor for ROBF
- follow GS recs
Benign Hypertension
- Stable. Hold PO meds acutely.
- IV Lopressor for now with holding parameters.
BPPV
- Patient reports continued / ongoing issues with positional dizziness since his last hospitalization.
- He has been taking meclizine PRN with temporary improvement.
- He states that he went to a single PT session as an outpatient.
- PT/Vestibular eval.
- consider IV agents prn if symptoms recurrent while NG in place cannot have meclizine PRN
Depression
- Resume usual meds once tolerating POs.
oral herpes labial
- holding oral Valtrex; continue Acyclovir ointment
DVT Prophylaxis: Lovenox
Code Status: Full
Anticipated Discharge: 24 - 48 hours
Subjective/Interval History
-
Date of Service: October 23, 2024
resting comfortably, no complaints at present
passing Gas
NG on clamp
Objective Data
-
Labs:
Laboratory Results
10/23/24 10/23/24
05:02 05:03
WBC 4.3 L
Hgb 10.8 L
Hct 31.0 L
Plt Count 189
Sodium 139
Potassium 3.5
Chloride 108 H
Carbon Dioxide 26
BUN 11
Creatinine 0.7
Glucose 85
Calcium 8.2 L
Vital Signs:
Vital Signs
Temp Pulse Resp BP Pulse Ox
98.1 F 48 18 136/55 95
10/23/24 11:30 10/23/24 11:31 10/23/24 11:30 10/23/24 11:31 10/23/24 11:30
I&O
10/22/24 10/23/24 10/24/24
06:59 06:59 06:59
Intake Total 795 / 795 360 / 360
Output Total 950 / 950 750 / 750 500 / 500
Balance -155 / -155 -750 / -750 -140 / -140
Physical Exam
-
General: No Apparent Distress
HEENT: Normocephalic, Atraumatic and Other (+ NG tube)
Respiratory: Clear to Auscultation; Negative Wheezes or Rales
Cardiac: Regular Rhythm and S1/S2
Genito-urinary: No Costovertebral Tender
Neuro: AO x 3
Psych: Calm
Data Reviewed
-
Total Time Spent with Patient (in minutes): 42
Labs: Labs Reviewed by me
[2024-10-23] MEDS: TORADOL 15 MG IV ×2 (14:33→19:28)
[2024-10-23 15:15] VITALS: BP 133/58
[2024-10-23] MEDS: LOVENOX 40 MG SC (17:09)
[2024-10-23 19:28] VITALS: BP 157/77
[2024-10-23] MEDS: DILAUDID 1.5 MG IV ×2 (19:30→23:49)
[2024-10-23 23:32] VITALS: BP 155/79
[2024-10-24] VITALS (7 sets, daily range): BP systolic 116–181; BP diastolic 64–97; PULSE 69
[2024-10-24] MEDS: LOPRESSOR IV ×2 (01:10→05:58)
[2024-10-24] MEDS: TORADOL 15 MG IV ×4 (01:40→20:04)
[2024-10-24] MEDS: OFIRMEV 100 IV ×2 (04:10→11:56)
[2024-10-24 06:51] LABS: Hematocrit 30.2 % (39.0-52.0); Hemoglobin 10.5 g/dL (13.0-18.0); Mean Corp Hgb Conc. 34.8 g/dL (33.0-37.0); Mean Corpuscular Volume 87.0 fL (80.0-94.0); Platelet Count 190 10^3/uL (130-400); Red Cell Dist. Width 12.7 % (11.5-14.5)
[2024-10-24 07:18] LABS: Blood Urea Nitrogen 10 mg/dl (9-20); Calcium 8.4 mg/dl (8.4-10.2); Carbon Dioxide 28 mmol/L (22-30); Chloride 109 mmol/L (98-107); Estimated Creatinine Clearance 123 ml/min; Glucose 72 mg/dl (70-99); Potassium 3.5 mmol/L (3.5-5.1); Sodium 138 mmol/L (135-145); eGFR > 60.00
[2024-10-24] MEDS: NSS (PRESERVATIVE FREE) 10 ML IV (08:04)
[2024-10-24] MEDS: VALIUM INJECTION 2 MG IV (08:04)
[2024-10-24] MEDS: PROTONIX IV 40 MG IV (08:04)
[2024-10-24] MEDS: ZOVIRAX OINTMENT 5% TOPICAL ×4 (08:16→22:34)
--- NOTE | 2024-10-24 08:26 | W.PN.HOSP.TC ---
Today's Communication/Plan
-
Cardiac diet.
Resume home meds
Assessment / Plan
Assessment / Plan
Impression:
Patient is a 74y M with PMH significant for hypertension, BPPV and depression who presents to ED complaining of abdominal pain with N/V. Patient states that his symptoms started last PM with nausea and non-bloody emesis. He woke this AM with
severe abdominal pain. He rested today and drank only water; however, his symptoms did not improve. His pain became more severe throughout the day. He continued to have nausea with multiple episodes of emesis.
CT scan shows evidence of small bowel obstruction.
Seen by surgery and underwent diagnostic laparoscopy converted to mini laparotomy for a small bowel obstruction and small bowel mass resection.
Pathology pending.
NG tube removed and patient started on clear liquid diet.
Assessment/plan:
small bowel obstruction and small bowel mass resection.
- s/p Diagnostic laparoscopy converted to mini laparotomy for SBR with finding of small bowel mass (path pending)
- NGT tube removed, started on clear liquid
- pain control, anti-emetics
- monitor for ROBF
- follow GS recs
Benign Hypertension
- Resume home medications
BPPV
- Patient reports continued / ongoing issues with positional dizziness since his last hospitalization.
- He has been taking meclizine PRN with temporary improvement.
- Resume home med
Depression
- Resumed home meds.
oral herpes labial
- resumed oral Valtrex; continue Acyclovir ointment
CODE STATUS: Full code
DVT prophylaxis: Lovenox
Diet: Clear liquid diet.
Total time spent on today's encounter was 65 minutes which included time spent in counseling the patient/family regarding diagnosis and treatment plan as listed above, goals of care, and symptom management. Case was discussed with nursing staff,
specialists, and care coordinators/case management. All labs and imaging personally reviewed by me. Remainder the time spent in detailed review of previous records, lab data, imaging, and other medical provider documentation.
Anticipated Discharge: > 48 hours
Subjective/Interval History
-
Date of Service: October 24, 2024
Patient seen and examined at bedside, denies any chest pain or shortness of breath, started on clear liquid diet as per surgery.
Resumed home med.
Objective Data
-
Labs:
Laboratory Results
10/24/24
06:29
WBC 4.0 L
Hgb 10.5 L
Hct 30.2 L
Plt Count 190
Sodium 138
Potassium 3.5
Chloride 109 H
Carbon Dioxide 28
BUN 10
Creatinine 0.7
Glucose 72
Calcium 8.4
Vital Signs:
Vital Signs
Temp Pulse Resp BP Pulse Ox
98.3 F 60 20 135/73 97
10/24/24 07:50 10/24/24 07:50 10/24/24 07:50 10/24/24 07:50 10/24/24 07:50
I&O
10/23/24 10/24/24 10/25/24
06:59 06:59 06:59
Intake Total 1260 / 1260
Output Total 750 / 750 925 / 925
Balance -750 / -750 335 / 335
Physical Exam
-
General: Well Developed, Well Nourished, No Apparent Distress and Comfortable
HEENT: Normocephalic, Atraumatic, Moist Mucous Membranes, No Ptosis, PERRLA and Nose Appears Normal
Respiratory: Clear to Auscultation and Non Labored Respirations
Cardiac: Regular Rhythm and S1/S2
Breast: Deferred by me
GI: Soft, Nondistended and Normal Bowel Sounds
Genito-urinary: No Costovertebral Tender
Musculoskeletal: No Clubbing, No Cyanosis and No Edema
Skin: Warm
Neuro: Awake, Alert, Oriented, AO x 3 and No Motor Deficits
Psych: Calm
Data Reviewed
-
Diagnostic Radiology: Image personally visualized and interpreted and Report Reviewed by me
CT Scan: Image personally visualized and interpreted and Report Reviewed by me
Ultrasound: Image personally visualized and interpreted and Report Reviewed by me
MRI: Image personally visualized and interpreted and Report Reviewed by me
Medical Tests (Nuc Med, Echo etc): Image personally visualized and interpreted and Report Reviewed by me
Labs: Labs Reviewed by me
Old Records: Reviewed
--- NOTE | 2024-10-24 10:26 | W.PN.GS2 ---
Addendum entered and electronically signed by Skinny Long MD 10/24/24 15:22:
I saw and examined the patient independently.
The resident's documentation was reviewed and I agree with the note, assessment and plan except where noted below.
Comment: This is a 74-year-old male who is postoperative day 3 from a diagnostic laparoscopy converted to mini laparotomy small bowel resection for an obstructing small bowel mass. Doing well, expected postoperative course.
Will keep on clears today.
Awaiting more robust return of bowel function.
Awaiting pathology results.
Restart home meds.
Surgery will follow
Original Note:
Today's Communication / Plan
-
Patient will be kept on clears diet until distention calms down.
Patient encouraged to get OOB and ambulating.
Medicine team will handle home med integration into his routine.
Waiting for pathology results.
Will continue to monitor.
Assessment / Plan
-
74 yo male presenting with SBO secondary to small bowel mass
POD #3 Diagnostic laparoscopy converted to mini laparotomy for SBR
AFVSS
OR path pending
+passing flatus, still with some distention
Plan:
Keep patient on clears diet
Patient needs to continue ambulating
Medicine team will restart home medicines slowly back into his routine.
Waiting for pathology results.
Trend labs
PPI for GI ppx
Lovenox for VTE ppx, scds while in bed
Time Spent
Total Time Spent with Patient (in minutes): 40
Subjective Data
-
Date of Service: October 24, 2024
74-year-old male with PMH significant for HTN, BPPV, depression, right-sided inguinal hernia repair, presented with N/V/abdominal pain indicative of small bowel obstruction secondary to small bowel mass. Patient reports similar episode 1 year ago
that was resolved with NG tube. Patient is POD #4 diagnostic laparoscopy converted to mini laparotomy for small bowel resection. Patient denies any pain, N/V/F. Patient admits to passing a lot of gas and having diarrhea. Patient states he is on
clears diet and able to get OOB and ambulate.
Objective Data
-
Intake and Output
10/23/24 10/24/24 10/25/24
06:59 06:59 06:59
Intake Total 1260 / 1260
Output Total 750 / 750 925 / 925
Balance -750 / -750 335 / 335
Intake:
Oral fluids 360 / 360
IV fluids (Total) 700 / 700
IV piggybacks 200 / 200
Output:
Gastrointestinal tube output ( 100 / 100
Total)
[place] Sump 100 / 100
Urine, Voided 750 / 750 825 / 825
Other:
Number of approximated MODERATE 2
amounts of urine
Vital Signs
Temp Pulse Resp BP Pulse Ox
98.3 F 60 20 135/73 97
10/24/24 07:50 10/24/24 07:50 10/24/24 07:50 10/24/24 07:50 10/24/24 07:50
Lab Results
10/24/24 06:29
10/24/24 06:29
Calcium 8.4 mg/dl (8.4-10.2) 10/24/24 06:29
Phosphorus 3.4 mg/dl (2.5-4.5) 10/22/24 05:22
Magnesium 1.9 mg/dl (1.6-2.3) 10/22/24 05:22
Total Bilirubin 0.8 mg/dl (0.2-1.3) 10/19/24 17:27
AST 30 U/L (17-59) 10/19/24 17:27
ALT 26 U/L (0-50) 10/19/24 17:27
Alkaline Phosphatase 85 U/L (38-126) 10/19/24 17:27
Total Protein 8.1 g/dl (6.3-8.2) 10/19/24 17:27
Albumin 5.1 g/dl (3.5-5.0) H 10/19/24 17:27
AVFSS
Labs: WBC trending down (4.3-4.0) N
Physical Exam
-
General: Patient looks uncomfortable
Chest: No labored breathing
Abdomen: Mildly TTP and distended around abdominal area.
Patient has a green catheter: No
Patient has a central line: No
[2024-10-24] MEDS: ZOVIRAX OINTMENT 5% 1 APPLIC TOPICAL (11:56)
--- NOTE | 2024-10-24 14:13 | CM ---
Reviewed the chart notes. Patient's diet remain clear liquid. PT/OT evaluations pending. CM continues to be available to patient/family and is monitoring medical plan for needs at discharge.
Plan: Discharge plans will depend on the patient's progress.
[2024-10-24] MEDS: WELLBUTRIN XL (24 hour extended release) 300 MG PO (14:18)
[2024-10-24] MEDS: LEXAPRO 10 MG PO (14:18)
[2024-10-24] MEDS: LOVENOX 40 MG SC (16:36)
[2024-10-24] MEDS: FLOMAX 0.4 MG PO (16:36)
[2024-10-24] MEDS: LIPITOR 20 MG PO (16:36)
[2024-10-24] MEDS: ZOFRAN 4 MG IV (20:04)
[2024-10-24] MEDS: DILAUDID 1 MG IV (20:11)
[2024-10-24] MEDS: VALTREX 2000 MG PO (21:47)
[2024-10-25] VITALS (7 sets, daily range): BP systolic 125–161; BP diastolic 57–100; PULSE 76; O2SAT 96; BMI 31.6
[2024-10-25] MEDS: DILAUDID 1 MG IV (02:31)
[2024-10-25] MEDS: TORADOL 15 MG IV ×2 (02:32→08:32)
--- NOTE | 2024-10-25 06:17 | DOWNTIME ---
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 Downtime documentation of patient's care, including medication administrations, has been reconciled in the electronic record per guidelines. Refer to the
patient's paper chart under the miscellaneous tab to see printed paper medication records and downtime forms.
[2024-10-25 06:56] LABS: Hematocrit 29.3 % (39.0-52.0); Hemoglobin 10.3 g/dL (13.0-18.0); Mean Corp Hgb Conc. 35.2 g/dL (33.0-37.0); Mean Corpuscular Volume 85.4 fL (80.0-94.0); Platelet Count 195 10^3/uL (130-400); Red Cell Dist. Width 12.6 % (11.5-14.5)
[2024-10-25 07:36] LABS: Blood Urea Nitrogen 9 mg/dl (9-20); Calcium 8.5 mg/dl (8.4-10.2); Carbon Dioxide 25 mmol/L (22-30); Chloride 109 mmol/L (98-107); Estimated Creatinine Clearance 123 ml/min; Glucose 66 mg/dl (70-99); Magnesium 1.9 mg/dl (1.6-2.3); Potassium 3.4 mmol/L (3.5-5.1); Sodium 139 mmol/L (135-145); eGFR > 60.00
[2024-10-25] MEDS: ZESTRIL 20 MG PO (08:31)
[2024-10-25] MEDS: KLOR-CON 20 MEQ PO (08:31)
[2024-10-25] MEDS: VALTREX 2000 MG PO (08:31)
[2024-10-25] MEDS: PROSCAR 5 MG PO (08:31)
[2024-10-25] MEDS: ASPIR LOW (ENTERIC COATED) 81 MG PO (08:31)
[2024-10-25] MEDS: LEXAPRO 10 MG PO (08:31)
[2024-10-25] MEDS: CARDIZEM CD 240 MG PO (08:31)
[2024-10-25] MEDS: WELLBUTRIN XL (24 hour extended release) 300 MG PO (08:31)
[2024-10-25] MEDS: ZOVIRAX OINTMENT 5% TOPICAL ×5 (08:32→21:24)
[2024-10-25] MEDS: NSS (PRESERVATIVE FREE) 10 ML IV (08:32)
[2024-10-25] MEDS: PROTONIX IV 40 MG IV (08:32)
--- NOTE | 2024-10-25 09:57 | PTOTSP ---
pt currently requires supervision to no assistance to complete simple ADLs, functional transfers, ambulation. no overt deficits noted regarding care, functional ability. no acute OT needs identified at this time, will sign off.
--- NOTE | 2024-10-25 10:16 | W.PN.GS2 ---
Addendum entered and electronically signed by Mk Gordon MD 10/25/24 11:26:
Patient seen and examined.
No major complaints. Crampy abdominal discomfort and nausea has resolved. Pain overall well-controlled. Reports passing flatus and loose stools. Afebrile. Ambulating. Voiding.
Gen: NAD
Abd: soft, mild tenderness, minimal distension, non-peritoneal, incisions c/d/i - no erythema, ecchymosis or drainage
Patient is a 74 yo M p/w SBO secondary to small bowel mass
POD #4 Diagnostic laparoscopy converted to mini laparotomy for SBR
AFVSS
OR path pending
Clinical improvement, +passing flatus and BM, distension improved
Plan:
-- Fulls, possible LRD for dinner tomorrow if improved
-- Pain control: Tylenol, Toradol Tramadol, transition off IV narcotics
-- HLIV
-- OOB/ambulate
-- Resume home meds
-- Awaiting for pathology results.
-- PPI for GI ppx
-- Lovenox for VTE ppx, scds while in bed
Original Note:
Today's Communication / Plan
-
Advance to low residue full diet
Continue OOB/ambulate
Discontinue IV pain meds
Switch to oral pain meds: Tylenol, Toradol, Tramadol
Continue to watch for resolution of post op ileus
Medicine team managing integration of home medications
Path results pending
PPI for GI ppx
Lovenox for VTE ppx, scds while in bed
Assessment / Plan
-
74 yo male presenting with SBO secondary to small bowel mass
POD #4 Diagnostic laparoscopy converted to mini laparotomy for SBR
AFVSS
OR path pending
+passing flatus, still with some distention
Plan:
Advance patient to full diet with full liquid diet for lunch. If he can tolerate that, then he can advance a bit more to main menu items for dinner.
Continue to watch for post op ileus resolution
Patient encouraged to continue to get OOB and ambulate.
Medicine team will restart home medicines slowly back into his routine.
Waiting for pathology results.
Discontinue IV Dilaudid
Switch to oral pain medicine in preparation for discharge: Tylenol, Toradol, Tramadol
PPI for GI ppx
Lovenox for VTE ppx, scds while in bed
Time Spent
Total Time Spent with Patient (in minutes): 40
Subjective Data
-
Date of Service: October 25, 2024
74-year-old male with PMH significant for HTN, BPPV, depression, right-sided inguinal hernia repair, presented with N/V/abdominal pain indicative of small bowel obstruction secondary to small bowel mass. Patient reports similar episode 1 year ago
that was resolved with NG tube. Patient is POD #5 diagnostic laparoscopy converted to mini laparotomy for small bowel resection. Patient denies any pain, N/V/F. Patient admits to passing a lot of gas and had an episode of diarrhea earlier this
morning. Patient states that he did well with his Jello and lemon ice yesterday and would like to advance his diet. He also states that he's been OOB and walking around to help with is recovery.
Objective Data
-
Intake and Output
10/24/24 10/25/24 10/26/24
06:59 06:59 06:59
Intake Total 1260 / 1260 340 / 340
Output Total 925 / 925
Balance 335 / 335 340 / 340
Intake:
Oral fluids 360 / 360 240 / 240
IV fluids (Total) 700 / 700
IV piggybacks 200 / 200 100 / 100
Output:
Gastrointestinal tube output ( 100 / 100
Total)
[place] Sump 100 / 100
Urine, Voided 825 / 825
Other:
Number of approximated MODERATE 2
amounts of urine
Vital Signs
Temp Pulse Resp BP Pulse Ox
98.1 F 60 18 154/73 96
10/25/24 08:00 10/25/24 08:00 10/25/24 08:00 10/25/24 08:00 10/25/24 08:00
Lab Results
10/25/24 06:08
10/25/24 06:08
Calcium 8.5 mg/dl (8.4-10.2) 10/25/24 06:08
Phosphorus 3.4 mg/dl (2.5-4.5) 10/22/24 05:22
Magnesium 1.9 mg/dl (1.6-2.3) 10/25/24 06:08
Total Bilirubin 0.8 mg/dl (0.2-1.3) 10/19/24 17:27
AST 30 U/L (17-59) 10/19/24 17:27
ALT 26 U/L (0-50) 10/19/24 17:27
Alkaline Phosphatase 85 U/L (38-126) 10/19/24 17:27
Total Protein 8.1 g/dl (6.3-8.2) 10/19/24 17:27
Albumin 5.1 g/dl (3.5-5.0) H 10/19/24 17:27
AFVSS
Labs: WNL
Physical Exam
-
General: NAD
AAAOx3
Chest: No Labored Breathing
Abdomen: Mild TTP and distension around incision site. Site looks clean and is healing well.
Patient has a green catheter: No
Patient has a central line: No
--- NOTE | 2024-10-25 10:18 | CM ---
Patient seen at bedside
PT rec Outpatient therapy
OT eval today - no needs
will need script upon discharge
PLAN: Home, Outpatient therapy - will need script
--- NOTE | 2024-10-25 14:00 | W.PN.HOSP.TC ---
Today's Communication/Plan
-
advanced diet.
Assessment / Plan
Assessment / Plan
Impression:
Patient is a 74y M with PMH significant for hypertension, BPPV and depression who presents to ED complaining of abdominal pain with N/V. Patient states that his symptoms started last PM with nausea and non-bloody emesis. He woke this AM with
severe abdominal pain. He rested today and drank only water; however, his symptoms did not improve. His pain became more severe throughout the day. He continued to have nausea with multiple episodes of emesis.
CT scan shows evidence of small bowel obstruction.
Seen by surgery and underwent diagnostic laparoscopy converted to mini laparotomy for a small bowel obstruction and small bowel mass resection.
Pathology pending.
NG tube removed and patient started on clear liquid diet.
now on full liquid
Assessment/plan:
small bowel obstruction and small bowel mass resection.
- s/p Diagnostic laparoscopy converted to mini laparotomy for SBR with finding of small bowel mass (path pending)
- NGT tube removed, started on clear liquid
- pain control, anti-emetics
- monitor for ROBF
- follow GS recs
10/25
Tolerated clear liquid diet
Advance to full liquid
Benign Hypertension
- Resume home medications
BPPV
- Patient reports continued / ongoing issues with positional dizziness since his last hospitalization.
- He has been taking meclizine PRN with temporary improvement.
- Resume home med
Depression
- Resumed home meds.
oral herpes labial
- resumed oral Valtrex; continue Acyclovir ointment
CODE STATUS: Full code
DVT prophylaxis: Lovenox
Diet: full liquid diet.
Total time spent on today's encounter was 65 minutes which included time spent in counseling the patient/family regarding diagnosis and treatment plan as listed above, goals of care, and symptom management. Case was discussed with nursing staff,
specialists, and care coordinators/case management. All labs and imaging personally reviewed by me. Remainder the time spent in detailed review of previous records, lab data, imaging, and other medical provider documentation.
Anticipated Discharge: 24 - 48 hours
Subjective/Interval History
-
Date of Service: October 25, 2024
Patient seen and examined at bedside, denies any chest pain or shortness of breath, tolerating diet.
Objective Data
-
Labs:
Laboratory Results
10/25/24
06:08
WBC 5.3
Hgb 10.3 L
Hct 29.3 L
Plt Count 195
Sodium 139
Potassium 3.4 L
Chloride 109 H
Carbon Dioxide 25
BUN 9
Creatinine 0.7
Glucose 66 L
Calcium 8.5
Vital Signs:
Vital Signs
Temp Pulse Resp BP Pulse Ox
98.4 F 73 18 129/70 97
10/25/24 11:20 10/25/24 11:20 10/25/24 11:20 10/25/24 11:20 10/25/24 11:20
I&O
10/24/24 10/25/24 10/26/24
06:59 06:59 06:59
Intake Total 1260 / 1260 960 / 960
Output Total 925 / 925
Balance 335 / 335 960 / 960
Physical Exam
-
General: Well Developed, Well Nourished, No Apparent Distress and Comfortable
HEENT: Normocephalic, Atraumatic, Moist Mucous Membranes, No Ptosis, PERRLA and Nose Appears Normal
Respiratory: Clear to Auscultation and Non Labored Respirations
Cardiac: Regular Rhythm and S1/S2
Breast: Deferred by me
GI: Soft, Nondistended and Normal Bowel Sounds
Genito-urinary: No Costovertebral Tender
Musculoskeletal: No Clubbing, No Cyanosis and No Edema
Skin: Warm
Neuro: Awake, Alert, Oriented, AO x 3 and No Motor Deficits
Psych: Calm
Data Reviewed
-
Diagnostic Radiology: Image personally visualized and interpreted and Report Reviewed by me
CT Scan: Image personally visualized and interpreted and Report Reviewed by me
Ultrasound: Image personally visualized and interpreted and Report Reviewed by me
MRI: Image personally visualized and interpreted and Report Reviewed by me
Medical Tests (Nuc Med, Echo etc): Image personally visualized and interpreted and Report Reviewed by me
Labs: Labs Reviewed by me
Old Records: Reviewed
[2024-10-25] MEDS: TORADOL 15 MG PO (16:52)
[2024-10-25] MEDS: LIPITOR 20 MG PO (16:53)
[2024-10-25] MEDS: LOVENOX 40 MG SC (16:54)
[2024-10-25] MEDS: FLOMAX 0.4 MG PO (16:54)
[2024-10-25] MEDS: ULTRAM 25 MG PO (17:36)
[2024-10-26] MEDS: TORADOL 15 MG PO ×2 (02:27→13:39)
[2024-10-26 03:20] VITALS: BP 159/68
[2024-10-26 06:00] VITALS: BMI 31.7
[2024-10-26 06:25] LABS: Hematocrit 30.4 % (39.0-52.0); Hemoglobin 10.6 g/dL (13.0-18.0); Mean Corp Hgb Conc. 34.9 g/dL (33.0-37.0); Mean Corpuscular Volume 84.9 fL (80.0-94.0); Platelet Count 185 10^3/uL (130-400); Red Cell Dist. Width 12.6 % (11.5-14.5)
[2024-10-26 06:50] LABS: Blood Urea Nitrogen 6 mg/dl (9-20); Calcium 8.4 mg/dl (8.4-10.2); Carbon Dioxide 25 mmol/L (22-30); Chloride 109 mmol/L (98-107); Estimated Creatinine Clearance 123 ml/min; Glucose 94 mg/dl (70-99); Potassium 3.3 mmol/L (3.5-5.1); Sodium 139 mmol/L (135-145); eGFR > 60.00
[2024-10-26 07:38] VITALS: BP 158/61
[2024-10-26] MEDS: ULTRAM 25 MG PO (08:47)
[2024-10-26] MEDS: WELLBUTRIN XL (24 hour extended release) 300 MG PO (08:47)
[2024-10-26] MEDS: CARDIZEM CD 240 MG PO (08:48)
[2024-10-26] MEDS: ZESTRIL 20 MG PO (08:53)
[2024-10-26] MEDS: PROSCAR 5 MG PO (08:53)
[2024-10-26] MEDS: ASPIR LOW (ENTERIC COATED) 81 MG PO (08:53)
[2024-10-26] MEDS: PROTONIX IV 40 MG IV (08:53)
[2024-10-26] MEDS: NSS (PRESERVATIVE FREE) 10 ML IV (08:54)
[2024-10-26] MEDS: KCL ELIXIR 40 MEQ PO (09:07)
[2024-10-26] MEDS: ZOVIRAX OINTMENT 5% TOPICAL ×3 (09:07→15:36)
[2024-10-26] MEDS: LEXAPRO 10 MG PO (09:07)
--- NOTE | 2024-10-26 09:16 | PN.CDI ---
CDI
- -
CDI:
Physician Documentation Request
Admit Date: 10/19/24 20:33
Dear Doctor Melvin ,
Please review the following and provide your response in the progress notes.
Clinical Indicators:
Pt admitted with SBO 2/2 Small bowel mass
Potassium levels below/Per MAR did get 20 MEQ KCL on 10/25 & 40 MEQ on 10/26
10/25/24 10/26/24
06:08 05:47
Potassium 3.4 L 3.3 L
Based on the above, could you clarify in the progress notes, the appropriate diagnosis, if significant, that supports the above abnormalities and additional evaluation, monitoring and/or treatment rendered:
Hypokalemia
Abnormal lab value
Other ( please specify)
Use of terms such as suspected, likely, concern for, or probable (associated with a specific diagnosis that is being evaluated, monitored, or treated as if it exists) are acceptable and can be coded in the inpatient setting, when documented at the
time of discharge.
Thank you,
Megan Akins RN
CDI Specialist
[place] [facility]
Please use your independent medical judgment in providing your response.
--- NOTE | 2024-10-26 10:14 | W.PN.HOSP.TC ---
Today's Communication/Plan
-
Discharge home today
Assessment / Plan
Assessment / Plan
Impression:
Patient is a 74y M with PMH significant for hypertension, BPPV and depression who presents to ED complaining of abdominal pain with N/V. Patient states that his symptoms started last PM with nausea and non-bloody emesis. He woke this AM with
severe abdominal pain. He rested today and drank only water; however, his symptoms did not improve. His pain became more severe throughout the day. He continued to have nausea with multiple episodes of emesis.
CT scan shows evidence of small bowel obstruction.
Seen by surgery and underwent diagnostic laparoscopy converted to mini laparotomy for a small bowel obstruction and small bowel mass resection.
Pathology pending.
NG tube removed and patient started on clear liquid diet.
now on full liquid
07/27
Patient tolerated low residual diet.
Cleared for discharge as per surgeon
Assessment/plan:
small bowel obstruction and small bowel mass resection.
- s/p Diagnostic laparoscopy converted to mini laparotomy for SBR with finding of small bowel mass (path pending)
- NGT tube removed, started on clear liquid
- pain control, anti-emetics
- monitor for ROBF
- follow GS recs
10/25
Tolerated clear liquid diet
Advance to full liquid
10/26
Tolerated low residual diet.
Discharge home as per surgeon
Benign Hypertension
- Resume home medications
BPPV
- Patient reports continued / ongoing issues with positional dizziness since his last hospitalization.
- He has been taking meclizine PRN with temporary improvement.
- Resume home med
Depression
- Resumed home meds.
oral herpes labial
- resumed oral Valtrex; continue Acyclovir ointment
CODE STATUS: Full code
DVT prophylaxis: Lovenox
Diet: full liquid diet.
Total time spent on today's encounter was 65 minutes which included time spent in counseling the patient/family regarding diagnosis and treatment plan as listed above, goals of care, and symptom management. Case was discussed with nursing staff,
specialists, and care coordinators/case management. All labs and imaging personally reviewed by me. Remainder the time spent in detailed review of previous records, lab data, imaging, and other medical provider documentation.
Anticipated Discharge: Today
Subjective/Interval History
-
Date of Service: October 26, 2024
Patient seen and examined at bedside, denies any chest pain or shortness of breath, no abdominal pain, no nausea, no vomiting, improved diarrhea, no constipation.
Objective Data
-
Labs:
Laboratory Results
10/26/24
05:47
WBC 5.5
Hgb 10.6 L
Hct 30.4 L
Plt Count 185
Sodium 139
Potassium 3.3 L
Chloride 109 H
Carbon Dioxide 25
BUN 6 L
Creatinine 0.7
Glucose 94
Calcium 8.4
Vital Signs:
Vital Signs
Temp Pulse Resp BP Pulse Ox
98.0 F 58 16 158/61 96
10/26/24 07:38 10/26/24 07:38 10/26/24 07:38 10/26/24 07:38 10/26/24 07:38
I&O
10/25/24 10/26/24 10/27/24
06:59 06:59 06:59
Intake Total 2560 / 2560
Balance 2560 / 2560
Physical Exam
-
General: Well Developed, Well Nourished, No Apparent Distress and Comfortable
HEENT: Normocephalic, Atraumatic, Moist Mucous Membranes, No Ptosis, PERRLA and Nose Appears Normal
Respiratory: Clear to Auscultation and Non Labored Respirations
Cardiac: Regular Rhythm and S1/S2
Breast: Deferred by me
GI: Soft, Nondistended and Normal Bowel Sounds
Genito-urinary: No Costovertebral Tender
Musculoskeletal: No Clubbing, No Cyanosis and No Edema
Skin: Warm
Neuro: Awake, Alert, Oriented, AO x 3 and No Motor Deficits
Psych: Calm
Data Reviewed
-
Diagnostic Radiology: Image personally visualized and interpreted and Report Reviewed by me
CT Scan: Image personally visualized and interpreted and Report Reviewed by me
Ultrasound: Image personally visualized and interpreted and Report Reviewed by me
MRI: Image personally visualized and interpreted and Report Reviewed by me
Medical Tests (Nuc Med, Echo etc): Image personally visualized and interpreted and Report Reviewed by me
Labs: Labs Reviewed by me
Old Records: Reviewed
--- NOTE | 2024-10-26 10:19 | W.DCSUMMARY ---
Addendum entered and electronically signed by Lilly Charles MD 10/26/24 11:25:
Hypokalemia.
Secondary to GI loss
Replace and continue to monitor
Original Note:
Discharge Summary
Discharge Data
Date of Admission: 10/19/24
Date of Discharge: 10/26/24
-
Pending Results: No
Hospital Course
Hospital course
Patient is a 74y M with PMH significant for hypertension, BPPV and depression who presents to ED complaining of abdominal pain with N/V. Patient states that his symptoms started last PM with nausea and non-bloody emesis. He woke this AM with
severe abdominal pain. He rested today and drank only water; however, his symptoms did not improve. His pain became more severe throughout the day. He continued to have nausea with multiple episodes of emesis.
CT scan shows evidence of small bowel obstruction.
Seen by surgery and underwent diagnostic laparoscopy converted to mini laparotomy for a small bowel obstruction and small bowel mass resection.
Pathology pending.
NG tube removed and patient started on clear liquid diet.
now on full liquid
07/27
Patient tolerated low residual diet.
Cleared for discharge as per surgeon
During hospitalization patient was treated from the following
small bowel obstruction and small bowel mass resection.
- s/p Diagnostic laparoscopy converted to mini laparotomy for SBR with finding of small bowel mass (path pending)
- NGT tube removed, started on clear liquid
- pain control, anti-emetics
- monitor for ROBF
- follow GS recs
10/25
Tolerated clear liquid diet
Advance to full liquid
10/26
Tolerated low residual diet.
Discharge home as per surgeon
Benign Hypertension
- Resume home medications
BPPV
- Patient reports continued / ongoing issues with positional dizziness since his last hospitalization.
- He has been taking meclizine PRN with temporary improvement.
- Resume home med
Depression
- Resumed home meds.
oral herpes labial
- resumed oral Valtrex; continue Acyclovir ointment
CODE STATUS: Full code
DVT prophylaxis: Lovenox
Diet: full liquid diet.
Total time spent on today's encounter was 40 minutes which included time spent in counseling the patient/family regarding diagnosis and treatment plan as listed above, goals of care, and symptom management. Case was discussed with nursing staff,
specialists, and care coordinators/case management. All labs and imaging personally reviewed by me. Remainder the time spent in detailed review of previous records, lab data, imaging, and other medical provider documentation.
Anticipated Discharge: Today
Discharge Plan
-
Patient Disposition: Home (Routine Discharge)
Discharge Diagnosis/Procedures: Small bowel obstruction secondary to obstructing mass status post diagnostic laparoscopy converted to mini laparotomy for small bowel resection
Diet: Low Fiber and Low Residue
Activity: No strenuous activity
Additional Activity: Do not lift over 15lbs for the next 4 weeks
Driving Restrictions: Not until seen by your Dr
Bathing Restrictions: OK to Shower
Wound Care: Allow the glue to flake off your incisions on its own over the next 2-3 weeks, avoid scrubbing or picking off
Activity Restrictions/Additional Instructions:
Call your surgeon if you have fevers >100.5, worsening pain or nasuea with vomiting.
Referrals:
Dewayne Spence MD [Family Provider]
Skinny Long MD [Active, Surgical] - in two to four weeks
Prescriptions:
New
(DME) Outpatient physical therapy
See Rx Instructions .Route .MEDSUPPLY Qty: 1 0RF
Rx Instructions:
3 times weekly
Diagnosis: Vertigo
Continued
omeprazole 20 mg capsule,delayed release(DR/EC)
20 mg PO DAILY
atorvastatin [Lipitor] 20 mg Tablet
20 mg PO QPM
aspirin 81 mg Tablet,Delayed Release (Dr/Ec)
81 mg PO DAILY
tamsulosin [Flomax] 0.4 mg Capsule
0.4 mg PO QPM
escitalopram oxalate [Lexapro] 10 mg Tablet
10 mg PO DAILY
dutasteride 0.5 mg Capsule
0.5 mg PO DAILY
bupropion HCl [Wellbutrin XL] 300 mg Tablet Extended Release 24 Hr
300 mg PO DAILY
polyethylene glycol 3350 [Miralax] 17 gram Powder In Packet
17 g PO DAILYPRN PRN (Reason: constipation)
ibuprofen 800 mg Tablet
800 mg PO Q6HPRN PRN (Reason: mild pain)
valacyclovir 1 gram tablet
2,000 mg PO BID
Patient Comments:
10/19/2024, filled on 10/18/2024 for 8-day supply.
diltiazem HCl [Cartia XT] 240 mg capsule,extended release 24hr
240 mg PO DAILY
lisinopril 20 mg Tablet
20 mg PO DAILY
clonazepam 1 mg Tablet
1 mg PO DAILYPRN PRN (Reason: anxiety)
meclizine 12.5 mg Tablet
12.5 mg PO BIDPRN PRN (Reason: dizziness)
therapeutic multivitamin Tablet
1 tab PO DAILY
acetaminophen [Tylenol Extra Strength] 500 mg Tablet
1,000 mg PO Q6HPRN PRN (Reason: mild pain)
calcium carbonate [Calcium 600] 600 mg calcium (1,500 mg) Tablet
600 mg PO DAILY
naproxen sodium [Aleve] 220 mg Tablet
440 mg PO Q8HPRN PRN (Reason: mild pain)
fluticasone propionate 50 mcg/actuation [place],Suspension
1 spray INTRANASAL DAILY
tadalafil 10 mg Tablet
10 mg PO DAILYPRN PRN (Reason: ED)
Discharge Orders:
Discharge Patient (As Directed); Ordered 10/26/24
Ordered By: Lilly Charles
Discharge Date and Time
Print Language: LIBYAN
--- NOTE | 2024-10-26 11:33 | CM ---
Reviewed the chart notes and spoke with the patient at the bedside. IMM reviewed. Patient to be discharged to home. Daughter will provide transportation. CM continues to be available to patient/family and is monitoring medical plan for needs at
discharge.
Plan: Discharge to home today with no additional needs being identified at this time.
--- NOTE | 2024-10-26 11:40 | W.PN.GS2 ---
Addendum entered and electronically signed by Oj Jaramillo MD 10/26/24 13:10:
I was physically present and personally performed the [place] portions of the surgical evaluation and/or procedure with the resident. I discussed the findings, reviewed the resident�s note, and confirmed the medical decision-making. I provided direct
supervision as required and agree with the assessment and plan as documented with the following additions/corrections:
David LRD, passing flatus, denies n/v, ambulating, pain controlled. Abd exam mildly distended, mild ttp diffusely, incisions cdi. OK for DC back to [facility] from surg standpoint
Original Note:
Today's Communication / Plan
-
Patient meets all necessary milestones for discharge.
--Tolerating fulls solid diet
--OOB/ambulating
--Passing gas
--Labs trending downward
--AFVSS
--Surgery signing off of case
--Patient ready for disharge
Assessment / Plan
-
74 y/o M who presented with SBO secondary to small bowel mass is POD#5 s/p diagnostic laparoscopy converted to mini laparotomy for SBR
AFVSS
OR path pending
+passing flatus, still with some distention
Plan:
Prescribe oral analgesic meds for home
Continue on his previous home medication
Continue full solid diet
Continue to get OOB and ambulate
Pathology results pending
PPI for GI ppx
Lovenox for VTE, ppx, scds, while in bed
Patient is signed off on by surgical team
Ready for discharge.
Time Spent
Total Time Spent with Patient (in minutes): 40
Subjective Data
-
Date of Service: October 26, 2024
74 y/o M who presented with SBO secondary to small bowel mass is POD#5 s/p diagnostic laparoscopy converted to mini laparotomy for SBR. Patient denies n/v/f/c. Patient states he has had 2 solid bowel movements and is continuing to pass a lot of gas.
Patient rates his current pain a 3/10. He is OOB and ambulating. Patient states he has been tolerating his diet of full solids. Patient also states that he has some crampy abdominal pain, but is fine with going home today.
Objective Data
-
Intake and Output
10/25/24 10/26/24 10/27/24
06:59 06:59 06:59
Intake Total 2560 / 2560
Balance 2560 / 2560
Intake:
Oral fluids 2460 / 2460
IV piggybacks 100 / 100
Other:
Number of approximated MODERATE 3
amounts of urine
Vital Signs
Temp Pulse Resp BP Pulse Ox
98.0 F 58 16 158/61 96
10/26/24 07:38 10/26/24 07:38 10/26/24 07:38 10/26/24 07:38 10/26/24 07:38
Lab Results
10/26/24 05:47
10/26/24 05:47
Calcium 8.4 mg/dl (8.4-10.2) 10/26/24 05:47
Phosphorus 3.4 mg/dl (2.5-4.5) 10/22/24 05:22
Magnesium 1.9 mg/dl (1.6-2.3) 10/25/24 06:08
Total Bilirubin 0.8 mg/dl (0.2-1.3) 10/19/24 17:27
AST 30 U/L (17-59) 10/19/24 17:27
ALT 26 U/L (0-50) 10/19/24 17:27
Alkaline Phosphatase 85 U/L (38-126) 10/19/24 17:27
Total Protein 8.1 g/dl (6.3-8.2) 10/19/24 17:27
Albumin 5.1 g/dl (3.5-5.0) H 10/19/24 17:27
Labs: WNL
Vitals: afebrile, hypertensive.
Physical Exam
-
General: NAD
AAAOx3
Chest: No labored breathing
Abdomen: Mild TTP/distension around incision sites in midabdominal area. Incision sites healing well.
Patient has a green catheter: No
Patient has a central line: No
[2024-10-26 12:03] VITALS: BP 145/64
[2024-10-26 15:20] VITALS: BP 142/63
--- NOTE | 2024-11-07 08:22 | PN.CDI ---
CDI
- -
CDI:
Physician Documentation Request
Admit Date: 10/19/24 20:33
Dear Doctor,
Please review the following and provide your response in the progress notes.
Clinical Indicators:
The diagnosis of Well-differentiated neuroendocrine tumor was included in the signed path report
Additional clinical indicators in the chart include:
Please indicate in your progress notes if you are in agreement that the above diagnosis is valid for this patient:
____ - (Diagnosis) is a valid diagnosis (Please include it in your progress notes)
____ - (Diagnosis) is not a valid diagnosis for this patient
____ - (Diagnosis) is not yet confirmed but remains a suspected condition
____ - Other
____ - Unable to determine
Use of terms such as suspected, likely, concern for, or probable are acceptable for a diagnosis that is being evaluated, monitored or treated as if it exists and can be coded in the inpatient setting, when documented at the time of discharge.
Thank you,
Don Monterroso
CDI Specialist
Please use your independent medical judgment in providing your response.
--- NOTE | 2024-11-07 16:14 | W.PN.UPDATE ---
Update Note
Progress Note Update
For CDI purposes:
Pathology reported back to me on 10/27/2024. Small bowel neuroendocrine tumor well-differentiated, with serosal and renee involvement. pT4 N1. This is consistent with his admission symptoms, imaging findings and intraoperative findings.
Patient was updated over the phone.
Oncology consulted and will arrange further workup and outpatient follow-up.
== END 2024-10-26 17:45 | disposition home or self-care (01) | DRG 827 ==
LOC: 2 SOUTH 20:33
PROVIDERS: Internal Medicine; Nurse Practitioner Family; Surgery; ADMITTING PHYSICIAN Hospitalist; ATTENDING PHYSICIAN General Practice; CONSULT PHYSICIAN Surgery; EMERGENCY PHYSICIAN Emergency Medicine; FAMILY PHYSICIAN Internal Medicine
PROC: 0DB80ZZ Excision of Small Intestine, Open Approach (ICD-10-PCS; 2024-10-21)
DX: C7A.8 Other malignant neuroendocrine tumors (principal); B00.2 Herpesviral gingivostomatitis and pharyngotonsillitis; K56.609 Unspecified intestinal obstruction, unspecified as to partial versus complete obstruction; F32.A Depression, unspecified; H81.10 Benign paroxysmal vertigo, unspecified ear; I10 Essential (primary) hypertension; E78.5 Hyperlipidemia, unspecified; E87.6 Hypokalemia; F41.9 Anxiety disorder, unspecified; N40.0 Benign prostatic hyperplasia without lower urinary tract symptoms; Z79.82 Long term (current) use of aspirin; Z79.899 Other long term (current) drug therapy; Z96.612 Presence of left artificial shoulder joint; Z96.652 Presence of left artificial knee joint; C7B.8 Other secondary neuroendocrine tumors
CPT/HCPCS: 71045; 74177; 80048; 80053; 81003; 81015; 83605; 83690; 83735; 84100; 85025; 85027; 87070; 88307; 88309; 88341; 88342; 93005; 96361; 96374; 96375; 97116; 97162; 97165; 99291; C1776; Q9967

== ENCOUNTER → 2024-11-25 11:24 | Outpatient (REF) | payer MEDICARE, OTHER, SELFPAY | LOC: RAD 11:24 | PROVIDERS: ATTENDING PHYSICIAN Internal Medicine Hematology & Oncology; FAMILY PHYSICIAN Internal Medicine | DX: C7A.011 Malignant carcinoid tumor of the jejunum (principal) | CPT/HCPCS: 74177; Q9967 ==

== ENCOUNTER 2024-12-04 18:41 | Emergency (ER) | payer MEDICARE, OTHER, SELFPAY ==
[2024-12-04 18:52] VITALS: BP 147/91
--- NOTE | 2024-12-04 21:30 | EDRN ---
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
[2024-12-04 21:40] VITALS: BP 138/66
--- NOTE | 2024-12-04 22:15 | EDRN ---
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
--- NOTE | 2024-12-04 22:41 | ED.GENMED ---
History of Present Illness
<YANDY Mensah - Last Filed: 12/04/24 22:58>
General
Chief Complaint: Fall
Source: patient and previous hospital records (Record from hospitalization one month ago)
Exam Limitations: none
Time Seen by Provider: 12/04/24 22:22
Nursing documentation reviewed up to this point in time: agreed with
History of Present Illness
History of Present Illness:
Patient is a 74 year old male with PMH of HTN, BPPV, and depression who presents to the ED following a mechanical fall. Patient reports having another fall two days ago in which he broke his glasses. The patient was attempting to step up onto the
curb when he lost his footing falling on outstretched hands.
Past History
<YANDY Mensah - Last Filed: 12/04/24 22:58>
Past History
ED Past Medical History: HTN
ED Past Surgical History: Bowel resection
Patient has exhibited threatening behavior?: No
Social History
Personal: Single
Living: alone (Independently at [facility])
Employment: Retired
Review of Systems
<YANDY Mensah - Last Filed: 12/04/24 22:58>
Review of Systems
Allergies reviewed?: Yes
Other source history: other (Lives independently at [facility])
All Other Systems: ROS reviewed and negative except as documented in HPI and ROS
Constitutional: Reports no symptoms
EENT: Reports no symptoms
Respiratory: Reports no symptoms
Cardiac: Reports no symptoms
ABD/GI: Reports no symptoms
: Reports no symptoms
Musculoskeletal: Reports joint pain and muscle stiffness
Skin: Reports no symptoms
Neurological: Reports dizzy (HX of vertigo)
Endocrine: Reports no symptoms
Hematologic/Lymphatic: Reports no symptoms
Psychiatric: Reports no symptoms
Phy Exam
<YANDY Mensah - Last Filed: 12/04/24 22:58>
General Physical Exam
General Presentation: well appearing
General age: appears stated age
General Skin: warm and dry
General Habitus: normal
General Mental: alert
Musculoskeletal Exam
Musculoskeletal Exam: full ROM
Skin Exam
Skin Exam: warm/dry
Course
<YANDY Mensah - Last Filed: 12/04/24 22:58>
Orders/Labs/Results
Orders:
Orders
12/04/24 19:07
CT Head W/o Iv Contrast Urgent
Reason For Exam: fall, blurred vision
CR Forearm - Left 2 View Urgent
Comment:
Reason For Exam: fall pain
CR Forearm - Right 2 View Urgent
Comment:
Reason For Exam: fall pain
CR Humerus - Left Min 2 Views* Urgent
Comment:
Reason For Exam: fall pain
CR Humerus - Right Min 2 View* Urgent
Comment:
Reason For Exam: fall pain
CR Wrist - Left Min 3 Views Urgent
Comment:
Reason For Exam: fall pain
CR Wrist - Right Min 3 Views Urgent
Comment:
Reason For Exam: fall pain
Knee, Right 4 or More Views [CR Knee- Right 4 Or More View*] Urgent
Comment:
Reason For Exam: fall pain
12/04/24 19:21
EKG [Electrocardiogram (*1)] Urgent
Reason for Study: Vertigo / Dizzy
EKG- Treatment ONCE
12/04/24 22:27
Ambulate Patient-Treatment ONCE
Orthostatic VS- Treatment ONCE
12/04/24 22:40
Ibuprofen [Motrin] 800 mg PO NOW STA
Meclizine [Antivert] 12.5 mg PO NOW STA
Vital Signs
Initial and Last Documented VS:
Initial Vital Signs
Temp Pulse Resp BP Pulse Ox
98.1 F 66 16 147/91 97
12/04/24 18:52 12/04/24 18:52 12/04/24 18:52 12/04/24 18:52 12/04/24 18:52
Last Documented Vital Signs
Temp Pulse Resp BP Pulse Ox
98.1 F 62 16 138/66 99
12/04/24 18:52 12/04/24 21:40 12/04/24 18:52 12/04/24 21:40 12/04/24 22:52
<Suzie Hudson, DO - Last Filed: 12/04/24 23:24>
Orders/Labs/Results
Orders:
Orders
12/04/24 19:07
CT Head W/o Iv Contrast Urgent
Reason For Exam: fall, blurred vision
CR Forearm - Left 2 View Urgent
Comment:
Reason For Exam: fall pain
CR Forearm - Right 2 View Urgent
Comment:
Reason For Exam: fall pain
CR Humerus - Left Min 2 Views* Urgent
Comment:
Reason For Exam: fall pain
CR Humerus - Right Min 2 View* Urgent
Comment:
Reason For Exam: fall pain
CR Wrist - Left Min 3 Views Urgent
Comment:
Reason For Exam: fall pain
CR Wrist - Right Min 3 Views Urgent
Comment:
Reason For Exam: fall pain
Knee, Right 4 or More Views [CR Knee- Right 4 Or More View*] Urgent
Comment:
Reason For Exam: fall pain
12/04/24 19:21
EKG [Electrocardiogram (*1)] Urgent
Reason for Study: Vertigo / Dizzy
EKG- Treatment ONCE
12/04/24 22:27
Ambulate Patient-Treatment ONCE
Orthostatic VS- Treatment ONCE
12/04/24 22:40
Ibuprofen [Motrin] 800 mg PO NOW STA
Meclizine [Antivert] 12.5 mg PO NOW STA
Vital Signs
Initial and Last Documented VS:
Initial Vital Signs
Temp Pulse Resp BP Pulse Ox
98.1 F 66 16 147/91 97
12/04/24 18:52 12/04/24 18:52 12/04/24 18:52 12/04/24 18:52 12/04/24 18:52
Last Documented Vital Signs
Temp Pulse Resp BP Pulse Ox
98.1 F 62 16 138/66 99
12/04/24 18:52 12/04/24 21:40 12/04/24 18:52 12/04/24 21:40 12/04/24 22:52
<YANDY Mensah - Last Filed: 12/04/24 22:58>
*Pulse Oximetry
SaO2: 99
Oxygen Mode of Delivery: Room air
<Suzie Hudson DO - Last Filed: 12/04/24 23:24>
*Radiology
Radiology exam reviewed: radiology read reviewed
*Pulse Oximetry
Patient hypoxic: no
*Critical Care Note
Total Time (30-74mins, 75-104mins- exclusive of procedures): Not Applicable
ED Attending Note
<YANDY Mensah - Last Filed: 12/04/24 22:58>
-
Portions of this chart may have been created with voice recognition software.� Occasional wrong word or��sound alike� substitutions may have occurred due to the inherent limitations of voice recognition software.
<Suzie Hudson DO - Last Filed: 12/04/24 23:24>
ED Attending Note
Patient seen and examined by attending physician: Yes
I performed the substantive portion of visit, reviewed & personally made and approve the management plan that is documented in note by myself or MERT.: Yes
ED Attending Note:
This is a 74-year-old gentleman who resides independently at [facility]. He has history of osteoarthritis, remote history of left total knee replacement, left shoulder replacement. Generally does not require assistive vices to ambulate but
admits to suffering a trip and fall 3 days ago, breaking his eyeglasses but otherwise no insightful injury. Today while stepping off of a curb he admits to a misstep, tripped and fell again onto his outstretched bilateral hands. He denies head
injury, no loss of consciousness. He presents with complaints of bilateral arm pain, worse with movement.
He denies headache, no neck nor back pain. He also notes some pain to his right knee. He denies weakness nor numbness and currently denies dizziness. 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
maintained on as needed [id number] meclizine.
Records reviewed.
Hospitalized 1 month ago with acute small bowel obstruction underwent laparotomy with small bowel resection and resection of the small bowel mass as well as resection of several intra-abdominal lymph nodes. Biopsy positive for neuroendocrine tumor
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
He has since followed with oncology, Dr. Ramirez and has undergone PET scan. He is scheduled in the near future for colonoscopy and scheduled for follow-up with the oncologist the end of December.
He has had no further abdominal pain. Normal appetite. No nausea nor vomiting, no diarrhea or constipation.
Upon discharge from the hospital October 26 he was prescribed ibuprofen 800 mg tablets which she had taken for various aches and pains with significant improvement. He states he is out of that prescription. He occasionally takes [id number]
Aleve for arthritis pain.
74-year-old gentleman appears his stated age, bright and alert, pleasant, appears in no acute distress. Upon entering exam room, patient had been chatting on the his phone with his girlfriend.
HEENT: Head is normocephalic, atraumatic.
Neck is supple, nontender, full range of motion without difficulty nor pain.
Heart is regular rate and rhythm.
Lungs are clear to auscultation. Respirations are easy and nonlabored. No chest wall tenderness.
Abdomen is soft without appreciable tenderness.
Extremities: Mild global tenderness to bilateral shoulders, bilateral elbows, bilateral forearms and wrists. There is full range of motion of extremities with mild to moderate pain with range of motion of bilateral shoulders, elbows, minimal pain
with range of motion of bilateral wrist. Hand grasp are full and equal bilaterally. There is no soft tissue swelling nor ecchymosis nor erythema. Peripheral pulses are full and equal. Sensation and strength intact.
Neuro: Awake alert and oriented x 3. No focal neurodeficits.
Skin: Warm and dry, normal color. Good turgor. No abrasions nor contusions noted.
Concern for soft tissue contusion, sprain strain, fracture. Concern for closed head injury, exacerbation of dizziness. Nothing in history to suggest orthostasis and no history of syncope.
For completeness sake however will check orthostatic vital signs.
CT of the head has been performed which is unremarkable.
Multiple x-rays completed of the bilateral upper extremities which shows evidence of DJD but no evidence of acute fracture. Evidence of prior left shoulder replacement. Right knee x-ray shows moderate tricompartmental osteoarthritis. No fracture.
Will give a dose of ibuprofen for pain as well as dose of his usual meclizine for potential dizziness.
Will attempt to ambulate and if successful will plan for discharge to home to his independent living apartment and [facility].
Patient does have ambulatory assistive devices at home including a walker, cane. Recommend he utilize these at least of the neck several days for ambulation assistance.
Will prescribe ibuprofen for as needed pain.
Encourage prompt follow-up with PCP for recheck.
Continue follow-up with oncologist as already scheduled.
Discharge Plan
Departure
Patient Disposition: Home (Routine Discharge)
Date of Disposition: 12/04/24
Time of Disposition: 23:10
Patient with high blood pressure during this ER visit?: No
Discharge Problem:
mechanical fall x 2, Pain in both upper arms
Instructions: Preventing falls in adults, Muscle, joint, and bone pain (DC)
Prescriptions:
New
ibuprofen 800 mg tablet
800 mg PO TIDPRN PRN (Reason: pain, fever) Qty: 30 0RF
No Action
omeprazole 20 mg capsule,delayed release(DR/EC)
20 mg PO DAILY
atorvastatin [Lipitor] 20 mg Tablet
20 mg PO QPM
aspirin 81 mg Tablet,Delayed Release (Dr/Ec)
81 mg PO DAILY
tamsulosin [Flomax] 0.4 mg Capsule
0.4 mg PO QPM
escitalopram oxalate [Lexapro] 10 mg Tablet
10 mg PO DAILY
dutasteride 0.5 mg Capsule
0.5 mg PO DAILY
bupropion HCl [Wellbutrin XL] 300 mg Tablet Extended Release 24 Hr
300 mg PO DAILY
polyethylene glycol 3350 [Miralax] 17 gram Powder In Packet
17 g PO DAILYPRN PRN (Reason: constipation)
ibuprofen 800 mg Tablet
800 mg PO Q6HPRN PRN (Reason: mild pain)
valacyclovir 1 gram tablet
2,000 mg PO BID
Patient Comments:
10/19/2024, filled on 10/18/2024 for 8-day supply.
diltiazem HCl [Cartia XT] 240 mg capsule,extended release 24hr
240 mg PO DAILY
lisinopril 20 mg Tablet
20 mg PO DAILY
clonazepam 1 mg Tablet
1 mg PO DAILYPRN PRN (Reason: anxiety)
meclizine 12.5 mg Tablet
12.5 mg PO BIDPRN PRN (Reason: dizziness)
therapeutic multivitamin Tablet
1 tab PO DAILY
acetaminophen [Tylenol Extra Strength] 500 mg Tablet
1,000 mg PO Q6HPRN PRN (Reason: mild pain)
calcium carbonate [Calcium 600] 600 mg calcium (1,500 mg) Tablet
600 mg PO DAILY
naproxen sodium [Aleve] 220 mg Tablet
440 mg PO Q8HPRN PRN (Reason: mild pain)
fluticasone propionate 50 mcg/actuation [place],Suspension
1 spray INTRANASAL DAILY
tadalafil 10 mg Tablet
10 mg PO DAILYPRN PRN (Reason: ED)
(DME) Outpatient physical therapy
See Rx Instructions .Route .MEDSUPPLY Qty: 1 0RF
Rx Instructions:
3 times weekly
Diagnosis: Vertigo
Referrals:
Dewayne Spence MD [Non-Admitting Privileges] - Call in 1-3 days for appt
UNKNOWN - PT DOES,NOT KNOW [Family Provider]
Interventions
Interventions:
*Risk Screen - Suicide Last Done: 12/04/24 18:52
*General Assessment Last Done: 12/04/24 21:38
*Neglect/Abuse Screening Last Done: 12/04/24 18:52
*ED- Fall Risk Assessment Last Done: 12/04/24 21:38
*ED COVID-19 Vaccine History Last Done: 12/04/24 21:38
ED-Musculoskeletal Assessment Last Done: 12/04/24 21:38
ED- Neurological Assessment Last Done: 12/04/24 21:38
ED-Skin Assessment Last Done: 12/04/24 21:38
Discharge Date and Time
Print Language: EQUATORIAL GUINEAN
[2024-12-04 22:47] VITALS: BP 112/96; BP 116/77; BP 141/74; PULSE 64; PULSE 66; PULSE 73
[2024-12-04] MEDS: ANTIVERT 12.5 MG PO (22:51)
[2024-12-04] MEDS: MOTRIN 800 MG PO (22:52)
== END 2024-12-04 23:28 | disposition home or self-care (01) ==
LOC: EMR 18:41
PROVIDERS: EMERGENCY PHYSICIAN Emergency Medicine
DX: M79.622 Pain in left upper arm (principal); M79.621 Pain in right upper arm; I10 Essential (primary) hypertension; F32.A Depression, unspecified; H81.10 Benign paroxysmal vertigo, unspecified ear; M17.11 Unilateral primary osteoarthritis, right knee; M19.011 Primary osteoarthritis, right shoulder; M19.012 Primary osteoarthritis, left shoulder; W18.09XA Striking against other object with subsequent fall, initial encounter; Y93.01 Activity, walking, marching and hiking
CPT/HCPCS: 99284; 70450; 73060; 73090; 73110; 73564

== ENCOUNTER → 2025-01-12 11:02 | Outpatient (REF) | payer MEDICARE, OTHER, SELFPAY | LOC: RAD 11:02 | PROVIDERS: ATTENDING PHYSICIAN Internal Medicine Hematology & Oncology; FAMILY PHYSICIAN Internal Medicine | DX: C7A.011 Malignant carcinoid tumor of the jejunum (principal) | CPT/HCPCS: 74177; Q9967 ==

== ENCOUNTER 2025-02-03 19:13 | Emergency (ER) | payer MEDICARE, OTHER, SELFPAY ==
[2025-02-03 19:15] VITALS: BP 144/91
[2025-02-03 20:50] VITALS: BMI 33.0
--- NOTE | 2025-02-03 21:04 | ED.GENMED ---
History of Present Illness
General
Chief Complaint: Abdominal Symptoms
Source: patient
Exam Limitations: none
Time Seen by Provider: 02/03/25 21:03
Nursing documentation reviewed up to this point in time: agreed with
History of Present Illness
History of Present Illness:
74-year-old male from [facility] independent living history HTN, HLD, CKD, anxiety/depression presents after ingestion of a foreign substance. He was looking his fingers of what he thought was salt and it turned out to be Oxy clean which he used
earlier to clean a carpet.
He saw a white film on his counter, stuck two fingers in it and put it to his tongue and realized it was the Oxyclean/Vinegar/soap solution that had spilled onto the counter.
[place] a little nauseous but that has passed.
He told the information security director at [facility] and they told him to come and get checked.
Denies mouth sores or discomfort.
Past History
Past History
ED Past Medical History: HTN
ED Past Surgical History: Bowel resection
Patient has exhibited threatening behavior?: No
Social History
Tobacco: Non-smoker
Alcohol: None
Personal: Single
Living: assisted living (Independently at [facility])
Employment: Retired
Review of Systems
Review of Systems
Allergies reviewed?: Yes
All Other Systems: ROS reviewed and negative except as documented in HPI and ROS
Phy Exam
Physical Exam
Physical Exam:
GENERAL: No acute distress. A&Ox3.
CONSTITUTIONAL: Afebrile.
EYES: clear, conjunctivae normal
ENMT: moist mucus membranes, no intraoral lesions, Pharynx nl
RESPIRATORY: Regular respirations, nonlabored, lungs clear.
CARDIOVASCULAR: Regular rate and rhythm, no murmurs, no rubs.
GI: Soft, nontender, normal BS
MUSCULOSKELETAL: Moves with ease. Well perfused.
SKIN: Warm, dry, pink
PSYCH: Normal mood and affect. Well kept, interactive and appropriate
NEUROLOGIC: Awake, alert and oriented. No focal neurological deficits
Course
Vital Signs
Initial and Last Documented VS:
Initial Vital Signs
Temp Pulse Resp BP Pulse Ox
98 F 86 16 144/91 95
02/03/25 19:15 02/03/25 19:15 02/03/25 19:15 02/03/25 19:15 02/03/25 19:15
Last Documented Vital Signs
Temp Pulse Resp BP Pulse Ox
98 F 86 16 144/91 95
02/03/25 19:15 02/03/25 19:15 02/03/25 19:15 02/03/25 19:15 02/03/25 21:07
MDM/Problems Addressed
MDM/Problems Addressed:
74-year-old male from [facility] independent living history HTN, HLD, CKD, anxiety/depression presents after ingestion of a foreign substance. He was looking his fingers of what he thought was salt and it turned out to be Oxy clean which he used
earlier to clean a carpet.
He saw a white film on his counter, stuck two fingers in it and put it to his tongue and realized it was the Oxyclean/Vinegar/soap solution that had spilled onto the counter.
[place] a little nauseous but that has passed.
He told the information security director at [facility] and they told him to come and get checked.
Denies mouth sores or discomfort.
Unremarkable physical exam.
Nothing in the solution, especially at that minute amount to cause any harm.
Pt reassured.
*Pulse Oximetry
SaO2: 95
Oxygen Mode of Delivery: Room air
Patient hypoxic: no
*Critical Care Note
Total Time (30-74mins, 75-104mins- exclusive of procedures): Not Applicable
ED Attending Note
-
Portions of this chart may have been created with voice recognition software.� Occasional wrong word or��sound alike� substitutions may have occurred due to the inherent limitations of voice recognition software.
Discharge Plan
Departure
Patient Disposition: Home (Routine Discharge)
Date of Disposition: 02/03/25
Time of Disposition: 21:34
Patient with high blood pressure during this ER visit?: No
Condition: Good
Discharge Problem:
Ingestion of foreign material
Prescriptions:
No Action
omeprazole 20 mg capsule,delayed release(DR/EC)
20 mg PO DAILY
atorvastatin [Lipitor] 20 mg Tablet
20 mg PO QPM
aspirin 81 mg Tablet,Delayed Release (Dr/Ec)
81 mg PO DAILY
tamsulosin [Flomax] 0.4 mg Capsule
0.4 mg PO QPM
escitalopram oxalate [Lexapro] 10 mg Tablet
10 mg PO DAILY
dutasteride 0.5 mg Capsule
0.5 mg PO DAILY
bupropion HCl [Wellbutrin XL] 300 mg Tablet Extended Release 24 Hr
300 mg PO DAILY
polyethylene glycol 3350 [Miralax] 17 gram Powder In Packet
17 g PO DAILYPRN PRN (Reason: constipation)
ibuprofen 800 mg Tablet
800 mg PO Q6HPRN PRN (Reason: mild pain)
valacyclovir 1 gram tablet
2,000 mg PO BID
Patient Comments:
10/19/2024, filled on 10/18/2024 for 8-day supply.
diltiazem HCl [Cartia XT] 240 mg capsule,extended release 24hr
240 mg PO DAILY
lisinopril 20 mg Tablet
20 mg PO DAILY
clonazepam 1 mg Tablet
1 mg PO DAILYPRN PRN (Reason: anxiety)
meclizine 12.5 mg Tablet
12.5 mg PO BIDPRN PRN (Reason: dizziness)
therapeutic multivitamin Tablet
1 tab PO DAILY
acetaminophen [Tylenol Extra Strength] 500 mg Tablet
1,000 mg PO Q6HPRN PRN (Reason: mild pain)
calcium carbonate [Calcium 600] 600 mg calcium (1,500 mg) Tablet
600 mg PO DAILY
naproxen sodium [Aleve] 220 mg Tablet
440 mg PO Q8HPRN PRN (Reason: mild pain)
fluticasone propionate 50 mcg/actuation [facility],Suspension
1 spray INTRANASAL DAILY
tadalafil 10 mg Tablet
10 mg PO DAILYPRN PRN (Reason: ED)
(DME) Outpatient physical therapy
See Rx Instructions .Route .MEDSUPPLY Qty: 1 0RF
Rx Instructions:
3 times weekly
Diagnosis: Vertigo
ibuprofen 800 mg tablet
800 mg PO TIDPRN PRN (Reason: pain, fever) Qty: 30 0RF
Referrals:
Dewayne Spence MD [Family Provider]
Activity Restrictions/Additional Instructions:
As we discussed, there is nothing worrisome in the amount or type of substance (Oxy-clean/vinegar/soap)that was on your fingers, that you accidentally ingested.
Interventions
Interventions:
*Risk Screen - Suicide Last Done: 02/03/25 19:16
*General Assessment Last Done: 02/03/25 20:50
*Neglect/Abuse Screening Last Done: 02/03/25 19:16
*ED- Fall Risk Assessment Last Done: 02/03/25 20:50
*ED COVID-19 Vaccine History Last Done: 02/03/25 20:50
*ED Influenza Vaccine History Last Done: 02/03/25 20:50
*Nursing Disposition Last Done: 02/03/25 21:39
FE-Zkjuao-Szqgwzljix Assessment Last Done: 02/03/25 20:50
Discharge Date and Time
Discharge Date/Time: 02/03/25 21:39
Print Language: SYRIAC
== END 2025-02-03 21:39 | disposition home or self-care (01) ==
LOC: EMR 19:13
PROVIDERS: EMERGENCY PHYSICIAN Emergency Medicine; FAMILY PHYSICIAN Internal Medicine
DX: T18.9XXA Foreign body of alimentary tract, part unspecified, initial encounter (principal); W44.9XXA Unspecified foreign body entering into or through a natural orifice, initial encounter; E78.00 Pure hypercholesterolemia, unspecified; I12.9 Hypertensive chronic kidney disease with stage 1 through stage 4 chronic kidney disease, or unspecified chronic kidney disease; N18.9 Chronic kidney disease, unspecified
CPT/HCPCS: 99284

== ENCOUNTER 2025-02-16 14:37 | Emergency (ER) | payer MEDICARE, OTHER, SELFPAY ==
[2025-02-16 14:39] VITALS: BP 125/92
--- NOTE | 2025-02-16 16:26 | ED.MUSCINJ ---
HPI-Injury
General
Chief Complaint: Fall
Source: patient
Exam Limitations: none
Time Seen by Provider: 02/16/25 14:52
Nursing documentation reviewed up to this point in time: agreed with
History of Present Illness-Injury
Is this injury a work related problem?: No
Is pt an associate of [facility]/[place]?: No
Initial Injury comments:
Patient to emergency department with a complaint of bilateral lateral rib pain, bilateral shoulder pain. Patient states he tripped on uneven pavement and fell. Injury occurred yesterday. He denies hitting his head. He was able to get himself up
and ambulate after his fall. States this morning he noticed that the chest wall pain and pain in his shoulders was continuing to worsen. Brought self to the emergency department for evaluation. Also notes abrasions to bilateral knees.
Past History
Past History
ED Past Medical History: HTN
ED Past Surgical History: Bowel resection
Patient has exhibited threatening behavior?: No
Social History
Tobacco: Non-smoker
Alcohol: None
Personal: Single
Living: assisted living (Independently at [facility])
Employment: Retired
Review of Systems
Review of Systems
Allergies reviewed?: Yes
All Other Systems: ROS reviewed and negative except as documented in HPI and ROS
Constitutional: Reports no symptoms
EENT: Reports no symptoms
Respiratory: Reports no symptoms
Cardiac: Reports no symptoms
ABD/GI: Reports no symptoms
Musculoskeletal: Reports joint pain (Pain to bilateral shoulders and bilateral lateral ribs)
Skin: Reports other (Abrasions to bilateral knees.)
Neurological: Reports no symptoms
Psychiatric: Reports no symptoms
Musculoskeletal Injury Exam
Musculoskeletal Injury Exam
Bilateral Shoulder:
Pain with Movement?: Moderate
Tender to palpation?: Moderate
Soft tissue swelling?: None
External deformity and angulation?: None
Joint effusion?: None
Contusion?: Moderate (Contusion to right shoulder)
Hematoma-local bleeding into tissue?: None
Strain- Sprain- Tear (Connective tissue injury)?: None
Crepitus with movement?: No
Joint instability?: No
Malalignment/deformity?: No
Range of motion: Full
Distal skin color and temperature: normal-warm & good color
Capillary Refill: normal
Normal distal neurovascular exam?: Yes
Bilateral Lateral Chest:
Pain with Movement?: Mild
Tender to palpation?: Moderate
Soft tissue swelling?: None
External deformity and angulation?: None
Joint effusion?: None
Contusion?: Moderate
Hematoma-local bleeding into tissue?: None
Strain- Sprain- Tear (Connective tissue injury)?: None
Crepitus with movement?: No
Joint instability?: No
Malalignment/deformity?: No
Range of motion: Full
Distal skin color and temperature: normal-warm & good color
Capillary Refill: normal
Normal distal neurovascular exam?: Yes
Phy Exam
General Physical Exam
General Presentation: well appearing and no apparent distress
General age: appears stated age
General Skin: warm and dry
General Habitus: normal
General Mental: alert
Cardiovascular Exam
Cardiovascular Exam: regular rate/rhythm and no edema
Pulmonary Exam
Pulmonary Exam: lungs clear and no respiratory distress
Gastrointestinal Exam
Gastrointestinal Exam: non tender, soft, no organomegaly, no pulsatile mass and non distended
Neurological Exam
Neurological Exam: alert, oriented x3, no motor deficits, no sensory deficits, speech normal and normal gait
Musculoskeletal Exam
Musculoskeletal Exam: full ROM, neuro vasc intact and other (Full nonpainful range of motion to head/neck and back)
Skin Exam
Skin Exam: normal color, warm/dry and no rash
Psychiatric Exam
Psychiatric Exam: normal mood/affect
Injury Course
Orders/Labs/Results
Orders:
Orders
02/16/25 15:04
Ribs, [place] 4 View W/PA Chest [CR Ribs-[place] 4 Vw W/pa Chest] Urgent
Comment:
Reason For Exam: fall, pain
Shoulder, Left, Trauma CR [CR Shoulder, Trauma - Left] Urgent
Comment:
Reason For Exam: fall pain
Shoulder, Right, Trauma [CR Shoulder, Trauma - Right] Urgent
Comment:
Reason For Exam: fall pain
*Radiology
Radiology exam reviewed: radiology read reviewed
*Pulse Oximetry
SaO2: 98
Oxygen Mode of Delivery: Room air
Patient hypoxic: no
*Critical Care Note
Total Time (30-74mins, 75-104mins- exclusive of procedures): Not Applicable
Update Note
Update Note:
Patient to the emergency department after trip and fall yesterday. He denies hitting his head. He was able to get himself up after the fall and ambulate without difficulty. He sustained abrasions to bilateral knees. Abrasions are superficial
there is no surrounding redness or swelling. He has full range of motion to this. Complains of pain to bilateral shoulders and bilateral lateral ribs. There there is no swelling to his shoulders, no bruising to shoulders or chest wall. X-rays
reviewed no evidence of fracture noted. Discussed findings with patient. He will continue to ice,nsaids prn, and he will follow-up with his family doctor. Given instructions on signs and symptoms to return to the emergency department and he is
agreeable to this plan.
ED Attending Note
-
Portions of this chart may have been created with voice recognition software.� Occasional wrong word or��sound alike� substitutions may have occurred due to the inherent limitations of voice recognition software.
Discharge Plan
Departure
Patient Disposition: Home (Routine Discharge)
Date of Disposition: 02/16/25
Time of Disposition: 16:14
Patient with high blood pressure during this ER visit?: No
Condition: Good
Covid-19: Not Applicable
Discharge Problem:
Chest wall contusion, Bilateral shoulder pain
Instructions: Contusion (DC), Preventing falls in adults, Cold therapy for pain
Prescriptions:
No Action
omeprazole 20 mg capsule,delayed release(DR/EC)
20 mg PO DAILY
atorvastatin [Lipitor] 20 mg Tablet
20 mg PO QPM
aspirin 81 mg Tablet,Delayed Release (Dr/Ec)
81 mg PO DAILY
tamsulosin [Flomax] 0.4 mg Capsule
0.4 mg PO QPM
escitalopram oxalate [Lexapro] 10 mg Tablet
10 mg PO DAILY
dutasteride 0.5 mg Capsule
0.5 mg PO DAILY
bupropion HCl [Wellbutrin XL] 300 mg Tablet Extended Release 24 Hr
300 mg PO DAILY
polyethylene glycol 3350 [Miralax] 17 gram Powder In Packet
17 g PO DAILYPRN PRN (Reason: constipation)
ibuprofen 800 mg Tablet
800 mg PO Q6HPRN PRN (Reason: mild pain)
valacyclovir 1 gram tablet
2,000 mg PO BID
Patient Comments:
10/19/2024, filled on 10/18/2024 for 8-day supply.
diltiazem HCl [Cartia XT] 240 mg capsule,extended release 24hr
240 mg PO DAILY
lisinopril 20 mg Tablet
20 mg PO DAILY
clonazepam 1 mg Tablet
1 mg PO DAILYPRN PRN (Reason: anxiety)
meclizine 12.5 mg Tablet
12.5 mg PO BIDPRN PRN (Reason: dizziness)
therapeutic multivitamin Tablet
1 tab PO DAILY
acetaminophen [Tylenol Extra Strength] 500 mg Tablet
1,000 mg PO Q6HPRN PRN (Reason: mild pain)
calcium carbonate [Calcium 600] 600 mg calcium (1,500 mg) Tablet
600 mg PO DAILY
naproxen sodium [Aleve] 220 mg Tablet
440 mg PO Q8HPRN PRN (Reason: mild pain)
fluticasone propionate 50 mcg/actuation [place],Suspension
1 spray INTRANASAL DAILY
tadalafil 10 mg Tablet
10 mg PO DAILYPRN PRN (Reason: ED)
(DME) Outpatient physical therapy
See Rx Instructions .Route .MEDSUPPLY Qty: 1 0RF
Rx Instructions:
3 times weekly
Diagnosis: Vertigo
ibuprofen 800 mg tablet
800 mg PO TIDPRN PRN (Reason: pain, fever) Qty: 30 0RF
Referrals:
Dewayne Spence MD [Family Provider] - Follow up in 2-3 days
Interventions
Interventions:
*Risk Screen - Suicide Last Done: 02/16/25 14:39
*General Assessment Last Done: 02/16/25 14:39
*Neglect/Abuse Screening Last Done: 02/16/25 15:42
*ED- Fall Risk Assessment Last Done: 02/16/25 15:42
*ED COVID-19 Vaccine History Last Done: 02/16/25 15:42
*ED Influenza Vaccine History Last Done: 02/16/25 15:42
*Nursing Disposition Last Done: 02/16/25 16:30
ED-Musculoskeletal Assessment Last Done: 02/16/25 15:45
ED- Neurological Assessment Last Done: 02/16/25 15:45
ED-Skin Assessment Last Done: 02/16/25 15:45
Discharge Date and Time
Print Language: PANAMANIAN
== END 2025-02-16 16:32 | disposition home or self-care (01) ==
LOC: EMR 14:37
PROVIDERS: EMERGENCY PHYSICIAN Emergency Medicine; FAMILY PHYSICIAN Internal Medicine
DX: S20.219A Contusion of unspecified front wall of thorax, initial encounter (principal); W18.09XA Striking against other object with subsequent fall, initial encounter; Y92.480 Sidewalk as the place of occurrence of the external cause; I10 Essential (primary) hypertension
CPT/HCPCS: 99283; 71111; 73030